=== PATIENT | male | born 1990 | race Caucasian/White ===

== ENCOUNTER 2016-12-27 01:34 | Observation (INO) | payer OTHER ==
[~2016-12-27] VITALS: Ht 182.9 cm; Wt 102.1 kg
[~2016-12-27 01:34] MED LIST: AMITRIPTYLINE H25 MG PO; BENTYL10 MG PO; CALCIUM 600 +1 EAC3 PO; DELZICOL400 M1 PO; DOXYCYCLINE MO100 MG PO; EFFEXOR XR150 MG PO; HYDROCODON-ACE1 EA10 PO; HYDROMORPHONE HC4 MG PO; LACTULOSE10 GM/15 M PO; MAPAP325 MG PO; MELADOX3 MG PO; MOTRIN IB200 MG PO; NEOSPORIN28 GM TOP; OXYCODONE HCL10 MG PO; STRATTERA80 MG PO
[2016-12-27] MEDS ORDERED: MIRALAX17 GM PO (01:51)
--- NOTE | 2016-12-27 05:20 | NUR ---
PT ARRIVED VIA [facility]RET[facility] FROM [facility] WITH x2 [facility] OFFICERS AT BEDSIDE. PT AMBULATES INDEPENDENTLY, STEADY ON FEET. UP TO BATHROOM, ORAL AND AM CARE DONE. PT NPO. IV FLUIDS INITIATED PER MD ORDERS. SCD'S IN PLACE. ADMISSION ASSESSMENTS COMPLETE. PT ALERT AND ORIENTED. PT RATES ABD PAIN 7-8/10, STATES THIS IS A TOLERABLE LEVEL AND DENIES NEEDING PAIN MEDICATION. PT DENIES ANY N/V AT THIS TIME. EDUCATED ACID DUMPER LIGHT, WITHIN REACH. PT AND OFFICERS DENY ANY FURTHER NEEDS AT THIS TIME.
--- NOTE | 2016-12-27 07:47 | NUR ---
RECIEVED BEDSIDE REPORT FROM KIRILL ALBERTS. PT AWAKE AND ALERT IN ROOM, CORRECTIONAL OFFICERS AT BEDSIDE. PT REPORTED NAUSEA AND PAIN. PRN MS AND ZOFRAN GIVEN.
--- NOTE | 2016-12-27 10:05 | NUR ---
PT UP IN ROOM. STATES PAIN IS 9/10, PRN MORPHINE GIVEN. PT ASKED ABOUT DRINKING AND CLEAR LIQUIDS. ADVISED AT THIS TIME, ORDERS ARE NPO. PT VERBALIZED UNDERSTANDING.
[2016-12-27] MEDS ORDERED: LEXAPRO10 MG PO (14:44)
[2016-12-27] MEDS ORDERED: HYDROXYZINE HCL50 MG PO (14:45)
[2016-12-27] MEDS ORDERED: SALINE NASAL SP30 ML NAS (14:46)
[2016-12-27] MEDS ORDERED: WHITE PETROLATUM5 GM TOP (14:47)
--- NOTE | 2016-12-27 14:58 | NUR ---
MED REC COMPLETE
--- NOTE | 2016-12-27 16:12 | NUR ---
Nurse gave ok to give ice chips.
--- NOTE | 2016-12-27 18:12 | NUR ---
CALLED DR PIMENTEL RE: PT SPITTING UP SMALL AMOUNT OF BLOODY MUCOUS. PT REPORTS INCREASED NAUSEA. DR PIMENTEL ADVISED TO GIVE AN ADDITIONAL 4MG DOSE OF ZOFRAN. DR PIMENTEL ADVISED IF PT BEGINS TO VOMIT, HE WILL NEED AN NG TUBE.
--- NOTE | 2016-12-27 18:56 | NUR ---
CALLED DR. PIMENTEL REGARDING PT WANTING TO REFUSE CARES AND RETURN TO [facility]. DR PIMENTEL ADVISED THAT HE CAN'T REFUSE CARE AND LEAVE AMA, HE NEEDS CARE THAT IS NOT AVAILABLE AT [facility]. ANIMAL [facility]UNTER IS AWARE AND WILL SPEAK WITH PT AND OFFICERS.
--- NOTE | 2016-12-27 19:20 | NUR ---
SPOKE WITH DR PIMENTEL, TELEPHONE ORDER TO RESTART [facility]. SPOKE WITH MARIA DOLORES JAUREGUI, RN AT [facility] OFFERED TO SPEAK WITH PT AND CONVINCE HIM TO COOPERATE WITH CARES. JUVENTINO REPORTED VERBAL LIST OF PSYCH MEDS THAT PT TAKES AT [facility]. ORDERS ENTERED FOR THOSE MEDS. EMPLOYEE RELATIONS DIRECTOR AWARE. [facility] AWARE.
--- NOTE | 2016-12-27 19:48 | NUR ---
RECEIVED REPORT FROM DAY SHIFT RN. PATIENT IS SITTING ON THE EDGE OF THE BED. PATIENT EXPRESSES CONCERN OF ANXIOUSNESS. DAY SHIFT RN. WAS ABLE TO CALL [facility]RI[facility] AND DR. PIMENTEL AND GET HIS HOME MEDS ADDED. LULÚ GIVE THEM WHEN AVAILABLE. CALL LIGHT IN REACH.
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
--- NOTE | 2016-12-27 21:21 | NUR ---
PATIENT IS REQUESTING MORE MEDICATION FOR ANXIETY. PATIENT STATES "I JUST CANT SETTLE DOWN TO SLEEP" PATIENT GIVEN PRN ANXIETY MEDICATION PER ORDER. PATIENT DENIES ANY FURTHER NEEDS AT THIS TIME. CALL LIGHT IN REACH.
--- NOTE | 2016-12-27 22:50 | NUR ---
PATIENT IS REQUESTING PAIN MEDICATION FOR 9/10 PAIN IN HIS ABD. PATIENT IS ALSO REQUESTING PRN NAUSEA MEDICATION. PATIENT GIVEN PRN NAUSEA AND PAIN MEDICATION PER ORDER. PATIENT DENIES ANY FURTHER NEEDS AT THIS TIME. CALL LIGHT IS WITHIN REACH.
--- NOTE | 2016-12-28 00:32 | NUR ---
PATIENT GIVEN PRN PAIN MEDICATION FOR 9/10 ABD PAIN. PATIENT DENIES ANY NAUSEA AT THIS TIME. PATIENT DENIES ANY FURTHER NEEDS CALL LIGHT IS WITHIN REACH.
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
--- NOTE | 2016-12-28 04:11 | NUR ---
PATIENT GIVEN PRN PAIN MEDICATION PER ORDER. PATIENT RATES PAIN AT A 9/10. PATIENT DENIES ANY FURTHER NEEDS AT THIS TIME. CALL LIGHT IS WITHIN REACH.
--- NOTE | 2016-12-28 05:46 | NUR ---
PATIENT AMBULATED X4 LAPS IN THE HALLWAY. PATIENT TOLERATED AMBULATION WELL. PATIENT RECEIVED A NEW IV. PATIENT TOLERATED ACTIVITY WELL. PATIENT RATES PAIN AT A 7/10 AND DENIES THE NEED FOR PAIN MEDICATION. PATIENT DENIES ANY NAUSEA AT THIS TIME.
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
--- NOTE | 2016-12-28 06:47 | NUR ---
PATIENTS MORNING MEDICATIONS GIVEN PER ORDER. PATIENT GIVEN PRN PAIN MEDICATION PER ORDER. PATIENTS IV INFILTRATED. PATIENT RECEIVED A NEW IV. PATIENT TOLERATED ACTIVITY WELL. PATIENT DENIES ANY FURTHER NEEDS. CALL LIGHT IS WITHIN REACH.
--- NOTE | 2016-12-28 07:24 | NUR ---
RECIEVED BEDSIDE REPORT FROM KIRILL EGAN. PT IN BED, AWAKE AND ALERT. OFFICERS X2 AT BEDSIDE. PT RESTLESS, UP AND DOWN ALL NIGHT.
--- NOTE | 2016-12-28 08:29 | NUR ---
PT VERY ANXIOUS. WOULD LIKE CAFFINE, BUT STATES HE HASN'T SLEPT IN 2 DAYS. PT IS UP AND DOWN AT ALL TIMES. PT C/O ITCHINESS. NO REDNESS, RASH, OR HIVES NOTED. PT WOULD LIKE TO SHOWER, WILL SET UP WITH OFFICER ASSISTANCE. KITCHEN ADVISED TO NOT GIVE PT CAFFINE.
--- NOTE | 2016-12-28 08:52 | NUR ---
PATIENT IS SITTING ON THE SIDE OF THE BED. PATIENT IS SET UP TO TAKE A SHOWER AFTER THE NURSE COMES TO SALINE LOCK HIM.
--- NOTE | 2016-12-28 09:19 | NUR ---
PT AGITATED AND ANXIOUS WHEN RN ENTERED ROOM. PREPARING PT FOR SHOWER. PT GIVEN MORPHINE IV AFTER TAKING DRESSING OFF IV AND REDRESSING THE CATHETER WAS KINKED UNDER DRESSING. IV COVERED AND SALINE LOCKED TO ALLOW PT TO SHOWER. WHILE CHANGING DRESSING ON IV, PT WAS COOPERATIVE, HELPFUL, AND DID NOT APPEAR TO BE ANXIOUS.
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
--- NOTE | 2016-12-28 16:54 | NUR ---
NO BM YET. WILL DO ENEMA NEXT TO PRODUCE BM. PT IS GETTING ANXIOUS, PRN ANXIETY MEDS GIVEN. PT REPORTS 9-10/10 PAIN Q 30 MIN, NO SIGNS OF PAIN NOTED. PT APPEARS TO BE AT BASELINE.
--- NOTE | 2016-12-28 17:38 | NUR ---
PT IS VERY ANXIOUS. PT REPORTS PAIN 9-10/10 Q 30-45 MINUTES. PT IS RESTLESS, PACES AROUND ROOM, FIDGITY. PRN PAIN MEDS X 7 THIS SHIFT. NO BM AFTER SUPOSITORY. FLEET ENEMA GIVEN, NO RESULTS AT THIS TIME. PT WOULD LIKE A SHOWER AFTER ENEMA. LEFT [facility] [place] FOR MD TO CALL BACK RE: PAIN CONTROL AND LACK OF RESULTS FROM ENEMA. PRN ANIXETY MEDS X2 THIS SHIFT.
--- NOTE | 2016-12-28 18:03 | NUR ---
PT REPORTS NO RESULTS FROM ENEMA. PHONE CALL IN TO DR PIMENTEL.
--- NOTE | 2016-12-28 18:13 | NUR ---
SPOKE WITH AMY, RN AT [facility]. THE LT IS ENROUTE TO THE HOSPITAL TO DETERMINE IF PT IS A RISK AND WILL RETURN TO THE FACILITY. DISCUSSED PLAN OF CARE AND CARE AVAILABLE. LT ARRIVED AT BEDSIDE.
--- NOTE | 2016-12-28 19:34 | NUR ---
RECEIVED REPORT FROM DAY SHIFT RN. PATIENT IS REQUESTING TO TAKE A SHOWER. PATIENTS GIVEN ESSENTIALS TO SHOWER. PATIENT DENIES ANY FURTHER NEEDS AT THIS TIME. X2 GUARDS IN THE ROOM.
--- NOTE | 2016-12-28 19:45 | NUR ---
PATIENT HAD INCREASED ANXIOUSNESS. DISCUSSED PLAN OF CARE WITH PATIENT. PATIENTS QUESTIONS ANSWERED. PATIENT AGREES TO PLAN OF CARE. PATIENTS ANXIETY APPEARS TO HAVE DECREASED AFTER DISCUSSION OF CARE. PATIENT DENIES ANY NEEDS AT THIS TIME CALL LIGHT IS WITHIN REACH.
--- NOTE | 2016-12-28 20:15 | NUR ---
SPOKE WITH DR. PIMENTEL ABOUT PATIENTS PAIN MANAGEMENT PLAN. LOREN TOMAS GAVE X2 NEW VERBAL ORDERS. VERIFIED NEW ORDERS USING THE READBACK METHOD. WILL PUT NE ORDERS INTO PLACE.
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
--- NOTE | 2016-12-28 23:22 | NUR ---
PATIENT GIVEN PO PRN PAIN MEDICATION PER ORDER. PATIENT RATES PAIN AT A 9/10 AND DESCRIBES THE PAIN CONSTANT PRESSURE. PATIENT DENIES ANY FURTHER NEEDS A THIS TIME. CALL LIGHT WITHIN REACH.
--- NOTE | 2016-12-29 01:20 | NUR ---
PATIENT IS RESTING IN BED WATCHING TV. PATIENT DENIES ANY NAUSEA. PATIENT RATES PAIN AT A 7/10. PATIENT DENIES THE NEED FOR ANY PAIN MEDICATION AT THIS TIME.
--- NOTE | 2016-12-29 03:25 | NUR ---
PATIENT IS RESTING IN BED WITH EYES CLOSED. BREATHING IS EVEN AND UNLABORED. RR 17. CALL LIGHT IN REACH.
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
--- NOTE | 2016-12-29 06:33 | NUR ---
PATIENT DENIES ANY NAUSEA. PATIENT RATES PAIN AT AN 8/10. PATIENT GIVEN PRN PAIN MEDICATION PER ORDER. PATIENT DENIES ANY FURTHER NEEDS AT THIS TIME. CALL LIGHT IS WITHIN REACH.
--- NOTE | 2016-12-29 07:05 | NUR ---
REPORT RECEIVED FROM SHOE CASER RN USING 5 P'S. PT AWAKE AND ALERT IN BED. DENIES NEEDS AT THIS TIME. IVF INFUSING WITHOUT DIFFICULTY. CALL LIGHT IN REACH. CO'S AT BEDSIDE.
--- NOTE | 2016-12-29 08:10 | NUR ---
PT REPORTS VOMITING, COMPLAINS OF NAUSEA. ZOFRAN GIVEN. SMALL AMOUNT PINK TINGED SPUTUM NOTED IN TOILET. PT GIVEN TORADOL FOR PAIN, WITH SCHEDULED AM MEDS.
--- NOTE | 2016-12-29 09:30 | NUR ---
PT RATES PAIN 9/10. PT NOT GRIMACING OR GUARDING ABDOMEN. TALKS EASILY WITH STAFF AND GUARDS. RN ASKS PT, "IT 10/10 MEANS YOU FEEL LIKE IT'S THE WORST POSSIBLE PAIN, IS YOUR PAIN A 9/10?" PT STATES, "WELL NO. IT'S PROBABLY LIKE A 7, BUT I DON'T WANT TO CHANGE MY ANSWER BECAUSE THEN YOU'LL THINK MY PAIN ISN'T BAD." RN EXPLAINS THAT THERE IS NOT A SPECIFIC NUMBER THAT QUALIFIES FOR PAIN MEDICATION, AND ASKS PT TO PLEASE RATE ACCURATELY POSSIBLE. PT SAYS, "WHATEVER."
--- NOTE | 2016-12-29 10:05 | NUR ---
RN TO ROOM FOR PERCOCET PT REQUESTED IT WHEN IT WAS DUE. PT SLEEPING. NO S/S DISTRESS. NOT WAKENED AT THIS TIME.
--- NOTE | 2016-12-29 10:19 | NUR ---
PT REQUESTS PAIN MED FROM NATIONAL INSURANCE OFFICER. NATIONAL INSURANCE OFFICER INFORMS RN. PT UP TO BR. RN RETURNS TO ROOM. PT SLEEPING IN BED. CONTINUING TO HOLD PAIN MED WHILE PT SLEEPING.
--- NOTE | 2016-12-29 11:52 | NUR ---
PT UP TO BR. REQUESTS PAIN MED. GIVEN. REMINDED PT OF NEED TO AMBULATE HALLS. TO STIMULATE BOWEL. PT AGREES TO AMBULATE. DENIES FURTHER NEEDS. CALL LIGHT IN REACH.
--- NOTE | 2016-12-29 12:47 | NUR ---
PT UP TO AMBULATE SCHROEDER. RATES PAIN 7/10. STEADY ON FEET.
--- NOTE | 2016-12-29 14:00 | NUR ---
PT TO CT WITH KEANU MOON.
--- NOTE | 2016-12-29 14:30 | NUR ---
PT BACK TO FLOOR. COMPLAINS OF NAUSEA. GIVEN ZOFRAN 4 MG IV. PT REQUESTS 2 APPLE JUICE, 2 CRANBERRY JUICE, AND A SODA. TALKED WITH PT REGARDING NEED TO ALLOW STOMACH TO REST IF ALREADY NAUSEATED. PT CONTINUES TO ASK FOR JUICE. GIVEN CRANBERRY JUICE. STATES UNDERSTANDS THAT MAY THROW UP, STATES, "I DON'T CARE. I'M JUST FUCKING THIRSTY." PT UNRECEPTIVE TO ATTEMPTS FOR RN TO EDUCATE.
--- NOTE | 2016-12-29 17:08 | NUR ---
PT SLEEPING IN BED. 2 CO'S AT BEDSIDE. IV FLUIDS INFUSING WITHOUT DIFFICULTY. CALL LIGHT IN REACH.
--- NOTE | 2016-12-29 17:29 | NUR ---
PT CONTINUES TO RATE PAIN 7-10. RECEIVING PERCOCET AND TORADOL. FALLS ASLEEP FREQUENTLY BETWEEN MEDICATIONS. AMBULATED SCHROEDER X 1 THIS SHIFT. PT COMPLAINS OF NAUSEA THROUGHOUT SHIFT. MEDICATED WITH ZOFRAN. TALKED WITH PT REGARDING NEED TO TAKE FLUIDS SLOW IF NAUSEOUS. PT REFUSES EDUCATION. CT THIS AFTERNOON. NO BLOCKAGE NOTED. NEEDS TO HAVE BM. NO RESULTS YET. 2 CO'S AT BEDSIDE. CALLS APPROPRIATELY. INDEPENDANT IN ROOM.
--- NOTE | 2016-12-29 18:16 | NUR ---
PT UP AMBULATING HALLS. LAUGHING AND TALKING WITH CO'S. RATES PAIN /. STEADY ON FEET.
--- NOTE | 2016-12-29 18:57 | NUR ---
PT SL'D FOR SHOWER. SL COVERED.
--- NOTE | 2016-12-29 20:05 | NUR ---
pt laying in bed, watching tv. marcinds x2 at bedside. pt complained of 9/10 pain in his adb, gave percocet x2. gave pt new toothbrush per request. gave cranberry juice and lemon kipnuk soda per request. pt had unhooked himself from his iv tubing, nurse educated pt and his guards on the importanence of recieving fluids at this time, and the need for him to have nurse unhook him if needed. pt agreed to call. call light in reach. no further needs at this time.
--- NOTE | 2016-12-29 20:11 | NUR ---
pt up in halls ambulating, no apparent distress, very steady on feet. guards x2 walking with him.
--- NOTE | 2016-12-30 00:21 | NUR ---
PT CALLED, REQUEST PAIN MEDICATION. MEDICATION GIVEN. PRUNE JUICE GIVEN. PT UP TO BATHROOM INDEPENDENTLY. GUARDS IN ROOM. NO FURTHER NEEDS AT THIS TIME. CALL LIGHT WITHIN REACH.
--- NOTE | 2016-12-30 02:45 | NUR ---
IN TO CHECK ON PT, PT IN BED SLEEPING. IVF INFUSING. GUARDS AT BEDSIDE. CALL LIGHT WITHIN REACH.
--- NOTE | 2016-12-30 06:15 | NUR ---
IN TO SEE PT, PT COMPLAINS OF 8/10 PAIN. PERCOCET GIVEN. 2 CO'S AT BEDSIDE. NO FURTHER NEEDS AT THIS TIME. CALL LIGHT WITHIN REACH.
--- NOTE | 2016-12-30 06:26 | NUR ---
PT HAS HAD UNEVENTFUL SHIFT, RESTED WELL. RATES PAIN A 7-8/10. PERCOCET GIVEN. AMBULATE THE HALLWAY SEVERAL TIMES. NO C/O NAUSEA. DIET ADVANCED TO FULL LIQUID, TOLERATING WELL. PRUNE JUICE GIVEN. NO BM. 2 CO'S AT BEDSIDE. INDPENDANT IN ROOM. CALLS APPROPRIATELY.
--- NOTE | 2016-12-30 07:43 | NUR ---
PT USED CALL LIGHT TO REQUEST BREAKFAST ITEMS
--- NOTE | 2016-12-30 08:02 | NUR ---
-PT SITTING UP AT BEDSIDE. EATING LARGE FULL LIQUID TRAY. NO REPORT OF PAIN AT THIS TIME. DRANK PRUNE JUICE, RN DISCUSSED WALKING 4 TIMES TODAY OUT IN HALLS AT A MINIMUM TODAY.
--- NOTE | 2016-12-30 08:26 | NUR ---
PT UP AMBULATING IN HALLS AT THIS TIME
--- NOTE | 2016-12-30 09:49 | NUR ---
PATIENT SITTING UP ON COUCH EATING BREAKFAST. TALKED ABOUT A SHOWER AFTERWARDS. NO OTHER NEEDS AT THIS TIME.
--- NOTE | 2016-12-30 11:16 | NUR ---
PT UP AMBULATING IN HALLS, NOW S/L FOR SHOWER. REPORTS PAIN 01/09, ADMINSTERED TWO TABS PERCOCET
--- NOTE | 2016-12-30 12:12 | NUR ---
PT CALLED [facility] TO REQUEST NURSE. PT IN BATHROOM SITTING AT TOILET REPORTS HE HAS BEEN VOMITING ALTHOUGH ONLY SPUTUM WITH SMALL AMOUNT OF RED STREAK IN APPEARS TO HAVE HAD A MILD NOSE BLEED. PT REPORTS HE FEELS THOUGH LUNCH IS SITTING HIGH GASTRIC REGION CAUSING PRESSURE. BOWELS AT THIS TIME ARE ACTIVE. PT GIVEN EMESIS BAG AND INSTRUCTED THAT AMBULATING IS GOING TO BE THE BEST THIS FOR HIM TO HELP INCREASE BOWEL ACTIVITY AND GET FOOD MOVING. PT OTLERATING ACTIVITY WELL.
--- NOTE | 2016-12-30 12:32 | NUR ---
PT STILL AMBUALTING HALLS REPORTS HE IS FEELING A LITTLE BETTER NOW.
--- NOTE | 2016-12-30 13:06 | NUR ---
PT REQUEST RN TO CALL HIS PAIN HAS INCREASED HIS LUNCH AND HIS PAIN MEDICATION IS NOT EFFECTIVE. CALLED TO UPDATE THAT PT HAS HAD TWO BREAKFASTS AND A LARGE LUNCH AFTER RN GAVE EDUCATION TO PT TO NOT EAT LARGE QUATITES AND TO GO SLOW. PT HAD CHEESE BURGER FOR LUNCH. [facility] AND CONTINUE CURRENT PAIN REGIMEN
--- NOTE | 2016-12-30 13:18 | NUR ---
PT SITTING ON SIDE OF BED, WITH CO'S ON EACH SIDE. PT POLITE AND COURTEOUS. SAID PAIN IS CONSTANT, AND DIDN'T GIVE A #. PT STATED HE HAS HAD TO DEAL WITH CHRON'S DISEASE FROM CHILDHOOD. THANKED ME FOR COMING, WILL CONTINUE TO CHECK AND FOLLOW
--- NOTE | 2016-12-30 14:20 | NUR ---
PT RESTING IN BED EYES CLOSED RR EVEN 16BPM NO DISTRESS NOTED
--- NOTE | 2016-12-30 15:03 | NUR ---
PT UP AMBULATING IN HALLS NO DISTRESS NOTED. PT REPORTS LARGE AMOUNT OF FLATUS REGULARLY
--- NOTE | 2016-12-30 17:30 | NUR ---
PT UP AMBUALTING IN HALLS LAUGHING AND JOKING WITH GUARDS. PT TOLERATING ACTIVITY WELL. PT GAVE ORDER FOR DINNER INCUDING STEAK, PEANUT BUTTER AND JELLY SANDWICH, ICE CREAM, COOKIES, PUDDING, TWO SODAS. PT EDUCATION PROVIDED PT ORDER CHANGED TO GRILLED CHEESE, AND ICE CREAM.
--- NOTE | 2016-12-30 18:26 | NUR ---
PT HAS BEEN TOLERATING LOW FIBER DIET WELL NO EMESIS, HE DOES TRY TO ORDER LARGE QUANTITIES FOR EACH MEAL THIS REQUIRES MONITORING. HE HAD INCREASE PAIN AFTER LUNCH LARGE MEAL. HE HAS BEEN AMBULATING IN HALLS REGULARLY 5+ TIMES TODAY. HE REPORTS REGULAR FLATUS, NO BM THUS FAR. NO EMESIS. REQUESTS PAIN COVERAGE EVERY FOUR HOURS HE CAN HAVE EVERY FOUR HOURS REPORTING HIS PAIN 8/10. VITALS STABLE.
--- NOTE | 2016-12-30 19:42 | NUR ---
IN TO SEE PT, PT REQUEST MEDICATION FOR 8/10 ABD PAIN. MAXIMUM DOSE LIMIT DISCUSSED. PT ASKS IT IS "OKAY TO TAKE PERCOCET 1 PO AT 2000, 1 PO AT 0015 AND NOTHING UNTIL MORNING". PLAN TO FOLLOW PT'S REQUEST. PT REQUEST NIGHT TIME MEDICATION AT 2200 DUE TO DROWSENESS. ASSESSMENT COMPLETE. 2 CO'S AT BEDSIDE. CALL LIGHT WITHIN REACH.
--- NOTE | 2016-12-30 22:00 | NUR ---
IN TO CHECK ON PT, VITALS TAKEN AND PM MEDS GIVEN. PT REQUEST CEREAL. ADVISE THAT CEREAL IS NOT ON THE LOW FIBER DIET. REQUEST ICE CREAM. ICE CREAM GIVEN. IVF CHANGED, IV PUMP STOPPED AND OFF WHEN ENTERING THE ROOM. PT ADVISED NOT TO STOP OR TURN OFF IVF, CALL RN. 2 CO AT BEDSIDE. CALL LIGHT WITHIN REACH.
--- NOTE | 2016-12-31 01:16 | NUR ---
IN TO CHECK ON PT, PT APPEARS TO BE SLEEPING. 2 CO'S AT BEDSIDE. CALL LIGHT WITHIN REACH.
--- NOTE | 2016-12-31 04:22 | NUR ---
PT CALL TO REQUEST PRN PAIN MEDICATIN. WHEN ENTERING ROOM PT UP TO BATHROOM TO URINATE, NO APPARENT DISTRESS NOTED. PT AMBULATED WITHOUT ASSISTANCE FROM GUARD. PAIN MEDICATION GIVEN. 2 CO'S AT BEDSIDE. CALL LIGHT WITHIN REACH.
--- NOTE | 2016-12-31 04:35 | NUR ---
PT HAS HAD UNEVENTFUL SHIFT, SLEPT WELL. PT HAS TOLERATED LOW FIBER DIET, NO NAUSEA OR EMESIS. ATTEMPTS TO ORDER LARGE QUANTITIES AT MEALS, RN SHOULD MONITOR. PT REPORT NO BM ON SHIFT, POSITIVE FLATUS. PT CONSISTANTLY RATES PAIN AN 8-9/10. PRN MEDIACTION GIVEN. VITALS STABLE. 2 CO'S AT BEDSIDE.
--- NOTE | 2016-12-31 06:15 | NUR ---
PT UP TO AMBULATE IN THE HALLWAY INDEPENDENTLY. NO APPARENT DISTRESS NOTED. 2 CO'S AT SIDE.
[2016-12-31] MEDS ORDERED: OXYCODON-ACETA1 EAC2 PO (08:49)
[2016-12-31] MEDS ORDERED: PANTOPRAZOLE SO40 MG PO (08:50)
[2016-12-31] MEDS ORDERED: PREDNISONE20 MG PO (08:54)
--- NOTE | 2016-12-31 10:04 | NUR ---
REPORT CALLED TO [facility]. PT DISCHARGE EDUCATION GIVEN ON DISEASE PROCESS AND CONTINUED THERAPY LOW FIBER DIET, PAIN MANAGEMENT AND EATING SMALL MEALS. AMBULATION AND WATER INTAKE IS VERY IMPORTANT. MEDICAITON EDUCATION BY RN AND PHARMACY DIDI. PT REPORTS NO FURTHER QUESTIONS AND VERBALIZED EDUCATIONS GIVEN
--- NOTE | 2016-12-31 11:53 | NUR ---
Didn't take shower do to discharge.
--- NOTE | 2017-01-04 10:32 | HP ---
[facility] [address], [place] [address] Signed ADMIT DATE: 12/27/2016 REASON FOR ADMISSION: Bowel obstruction, probably Crohn's related. HISTORY: This 26-year-old white man is a prisoner at [facility] and well known to me from the past. 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 Biopsy of his rectum at that time showed no sign of active Crohn's disease. He is well established to have Crohn's disease in the past having seen Dr. Mitchell, a nurse assistant in the [facility]. He was initiated on Remicade for which he had an anaphylactic reaction and subsequently Humira with similar effect. He has never had an intraabdominal operation for his Crohn's disease. He has been feeling somewhat poorly lately with vague abdominal pain and this sanabria s been known to me from the past. Indeed a plan for colonoscopy was made in the near future to assess his disease activity. His last colonoscopy was in the [facility] over a year ago. Yesterday he began having significant abdominal pain and audible bowel sounds in the lower abdomen and some pain in the right lower abdomen. He had upper abdominal pain previously. He had vomiting twice prior to arrival to the emergency room. He was seen by Dr. Perez approximately 2 in the morning. Laxatives have been tried with only small bowel movements. He had no blood per rectum. He has had no fever or chills. PAST MEDICAL HISTORY: Included left hand cellulitis in the past, also suicide attempt a few months ago by hanging, which was unsuccessful. MEDICATIONS: Currently include calcium and vitamin D3 supplement, Delzicol 400 mg p.o. t.i.d., lactulose 10 mg daily, melatonin 3 mg daily, episodic use of oxycodone for abdominal pain, Strattera 40 mg p.o. daily, and MiraLAX as needed for constipation. REVIEW OF SYSTEMS: He denies any chest pain. He has had no hematemesis. He denies blood per rectum. Currently, his pain is less than at time of admission. PHYSICAL EXAMINATION: GENERAL: Tall white man, who looks to be healthy overall. NECK: Normal. Trachea is midline. CHEST: Clear. HEART: Regular, without murmur. Electronically Signed By: ROBBIN PIMENTEL MD 01/04/17 1032 PATIENT NAME: ADRIENNE CANALES HISTORY AND PHYSICAL DATE OF : [birth year] PHYSICIAN: ROBBIN PIMENTEL MD REPORT #: [id number] REPORT IS CONFIDENTIAL AND NOT TO BE RELEASED WITHOUT AUTHORIZATION [facility] [address], [place] [address] Signed ABDOMEN: Nondistended, slightly obese, soft, easily palpated. There is no focal mass detected. No tenderness at the moment. EXTREMITIES: No clubbing, cyanosis, or edema. LABORATORY DATA: Show admission white count of 6.3, hematocrit 46.8, platelets 261,000. Electrolytes are normal. Creatinine 0.71, calcium 10.2. I have reviewed the CT scan in detail with Dr. Ortez. There is a segment of the sigmoid that has a concentric ring like scar. It appears there is some proximal dilation of the colon and fluid filled right colon and stool in the left colon. Small bowel loops appear to be jumbled into a confluence in the right lower abdomen, although t he terminal ilium proper appears to be reasonably free. ASSESSMENT: Most likely has a Crohn's related intraabdominal problem of either internal fistulization with obstructive type change or perhaps obstruction alone. It is unclear the cause of colonic dilation, the sigmoid lesion may be contributing to an obstructive process. Given his underlying issue of Crohn's disease, I have initiated steroid therapy as a "rescue drug" at this time. This may allow this problem to settle naturally without the need for operative intervention. It warrants a chance at therapy. Although, operative intervention may come to pass if it can be avoided that would be preferable obviously so as to avoid need for bowel resection and for complications, which might include fistulization or poor wound healing internally. Ulcer prophylaxis will be maintained in the meantime. We will review this with Dr. Amaro, physician at the [facility]. MD ROMERO Cooper/Modl /[id number] cc: Grady Amaro MD Electronically Signed By: ROBBIN PIMENTEL MD 01/04/17 1032 PATIENT NAME: ADRIENNE CANALES HISTORY AND PHYSICAL DATE OF : [birth year] PHYSICIAN: ROBBIN PIMENTEL MD REPORT #: [id number] REPORT IS CONFIDENTIAL AND NOT TO BE RELEASED WITHOUT AUTHORIZATION
--- NOTE | 2017-01-05 13:32 | DS ---
[facility] [address], [place] [address] Signed ADMIT DATE: 12/27/2016 DISCHARGE DATE: 12/31/2016 REASON FOR ADMISSION This 26-year-old white man is a prisoner at the [facility] and well known to me from the past. 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 Biopsy of his rectum at that time showed no sign of active Crohn's disease. So he is well established to have Crohn disease in the past. He had seen a options trader in the [facility], Dr. Mitchell and was initiated on Remicade for control of his symptoms, which he had an anaphylactic reaction to. He subsequently was given Humira, which had a similar anaphylactic effect. He has never had intraabdominal operation for his Crohn disease. He had been feeling poorly lately with vague abdominal pain, which was described in the past. A plan for colonoscopy had been made in later in this month to assess disease activity. He has his last colonoscopy was in the [facility] over a year ago. The day prior to current admission, he began having significant abdominal pain and audible bowel sounds in the lower abdomen. He had some pain in the right lower abdomen. He vomited twice prior to his arrival to the emergency room, was evaluated by Dr. Perez in approximately 2 in the morning. Laxatives had been tried with only small bowel movements. He has had no blood per rectum. His evaluation included lab studies, as well as a CT scan of the abdomen showed a segment of sigmoid that had been tethered in an inflammatory process in the right lower abdomen and karla rowing and obstructive findings in a complicated tangle of bowel loops in the right lower abdomen. He is admitted for further evaluation and care for high probability of bowel obstruction related to Crohn's disease. PERTINENT PHYSICAL EXAM: GENERAL: Showed a large white man who did not look systemically toxic particularly. CHEST: Clear. HEART: Regular without murmur. ABDOMEN: Nondistended slightly obese, soft easily, palpated. There is no focal mass or tenderness. No sign of ascites. EXTREMITIES: Showed no sign of edema. LABORATORY DATA: Electronically Signed By: ROBBIN PIMENTEL MD 01/05/17 1332 PATIENT NAME: ADRIENNE CANALES DISCHARGE SUMMARY DATE OF : [birth year] PHYSICIAN: ROBBIN PIMENTEL MD REPORT #: [id number] REPORT IS CONFIDENTIAL AND NOT TO BE RELEASED WITHOUT AUTHORIZATION [facility] [address], [place] [address] Signed White count was 6.3, hematocrit 46.8, platelets 261,000, electrolytes normal, creatinine 0.71, calcium 10.2. The CT scan was reviewed in great detail with Dr. Ortez and there appeared to be a dense inflammatory obstructive process in the right lower abdomen with secondary tethering of the sigmoid colon. A fair amount of fluid was noted in the colon itself, as well as stool, as well as dilation of small bowel loops. HOSPITAL COURSE: A nasogastric tube was not placed for enteric decompression as he was resistent to the idea.He was not vomitingeither however. He was begun on hydrocortisone 100 mg IV q.8 hours on the high probability, this represented an inflammatory process related to his Crohn disease. The patient did have improvement of his symptoms of abdominal pain and distention. A nasogastric tube was not placed, though it certainly was considered. The patient on the 1st day of hospitalization intimated he wished to leave the hospital "AMA" as he did not like to be restrained in chains in the hospital setting, which of course is standard and appropriate for convicted felons in this institution. Followup lab studies showed normal electrolytes, including liver enzymes and CBC. DVT prophylaxis was maintained as well.Underlying anxiety disorder contributed to his ambivalence about hospitalization. Followup plain x-rays were undertaken showing decrease of enteric distention. He was s begun on Jell-O for comfort and was noted to have on the intital CT scan, a fair amount of obstruction of the colon related to tethering of the sigmoid, but without enteric or luminal neoplasm. Enemas were given without any significant benefit. By this time, he was improving somewhat and plain abdominal x-rays showing no sign of bowel obstruction. A repeat CT scan was obtained to assess progress of his nonoperative management of inflammatory adhesion related small bowel obstruction. Indeed this did show marked improvement of his abdominal distention and decrease of the edema and so forth related to the inflammatory process in the right lower abdomen. He had progressive improvement and was transitioned to oral steroid prednisone 40 mg p.o. daily with maintenance of the PPI medication for ulcer prophylaxis. His diet was advanced to a low fiber diet which he tolerated well. It appeared that he was improving enough with the anti-inflammatory regimen that he could be returned to the [facility] for further management. It is my intention at some point to do a small-bowel follow-through x-ray to assess extent of stricturing or inflammatory change in the small bowel, which has caused this obstructive process. He has not had abdominal surgery to resect or otherwise revise any stricture and at present it does not advocated unless recurrent symptoms should occur. Electronically Signed By: ROBBIN PIMENTEL MD 01/05/17 1332 PATIENT NAME: ADRIENNE CANALES DISCHARGE SUMMARY DATE OF : [birth year] PHYSICIAN: ROBBIN PIMENTEL MD REPORT #: [id number] REPORT IS CONFIDENTIAL AND NOT TO BE RELEASED WITHOUT AUTHORIZATION [facility] [address], [place] [address] Signed At some point, he may require segmental resection of the bowel with an inflammatory stricture if persistent and recurrent. At time of the discharge, he is ambulating well. Tolerating the solid diet (low-fiber) and tolerating his usual oral medications including psychotropic medications. DISCHARGE MEDICATION: Regimen will include prednisone 40 mg p.o. daily tapering 10 mg every 2 weeks down to every other day dosing eventually. Additionally, he is resuming his Delzicol, which he has been taking all along. Continue antiulcer prophylaxis will be recommended including Protonix 40 mg p.o. daily. His psychotropic medications will be continued as well. FOLLOWUP PLAN: He will return to see me when I next perform a retirement clinic within the next few weeks. He should maintain a low-fiber diet until the time that he is seen back. It will be up to the judgment of Dr. Amaro as to when he is able to return to the population at the retirement as he may still require some monitoring and modification of his diet to be low residue for the time being. DISCHARGE DIAGNOSES: Small bowel obstruction and impairment of colonic emptying related to inflammatory process of right lower abdomen, probably Crohn's disease. Marked improvement and resolution of small-bowel obstruction and colonic distention with oral steroid therapy. Well-established Crohn's disease. Psychiatric diagnosis including anxiety and depression. History of perianal fistula. Now with a yellow vessel loop seton for chronic drainage. Incarceration, [facility]. MD ROMERO Cooper/Jarred /[id number] cc: Electronically Signed By: ROBBIN PIMENTEL MD 01/05/17 1332 PATIENT NAME: ADRIENNE CANALES DISCHARGE SUMMARY DATE OF : [birth year] PHYSICIAN: ROBBIN PIMENTEL MD REPORT #: [id number] REPORT IS CONFIDENTIAL AND NOT TO BE RELEASED WITHOUT AUTHORIZATION [address] [facility] S[facility] By: ROBBIN PIMENTEL MD 01/05/17 1332 PATIENT NAME: ADRIENNE CANALES DISCHARGE SUMMARY DATE OF : [birth year] PHYSICIAN: ROBIBN PIMENTEL MD REPORT #: [id number] REPORT IS CONFIDENTIAL AND NOT TO BE RELEASED WITHOUT AUTHORIZATION
[2017-01-18] MEDS ORDERED: ULTRAM50 MG PO (16:35)
== END 2016-12-31 10:30 | disposition home or self-care (01) ==
LOC: ED 01:34 → MS 01:36 → ED 04:45 → MS 04:45
PROVIDERS: ADMIT Surgery
DX: K50.912 Crohn's disease, unspecified, with intestinal obstruction (principal); Z79.891 Long term (current) use of opiate analgesic; Z79.899 Other long term (current) drug therapy; Z88.8 Allergy status to other drugs, medicaments and biological substances
CPT/HCPCS: 74000; 74177; 80053; 81001; 83690; 85025; 96361; 96372; 96374; 96375; 96376; 99285; G0378; J1170; J1200; J1644; J1720; J1885; J2270; J2405; J7030; J7120; J7512; Q9967

== ENCOUNTER 2017-01-03 19:22 | Inpatient (IN) | payer OTHER ==
[~2017-01-03] VITALS: Ht 182.9 cm; Wt 95.2 kg
[~2017-01-03 19:22] MED LIST changes: +HYDROXYZINE HCL50 MG PO; +LEXAPRO10 MG PO; +MIRALAX17 GM PO; +OXYCODON-ACETA1 EAC2 PO; +PANTOPRAZOLE SO40 MG PO; +PREDNISONE20 MG PO; +SALINE NASAL SP30 ML NAS; +WHITE PETROLATUM5 GM TOP
[2017-01-03] MEDS ORDERED: TRAMADOL HCL50 MG PO (19:37)
--- NOTE | 2017-01-04 00:15 | NUR ---
PT ARRIVED TO FLOOR ESCORTED BY RN PRODUCT MGMT DEV MANAGER AND 2 GUARDS, PT IS FROM [facility] AND HAS RESTRAINTS TO 4 EXTREMITIES INCLUDING BELLY CHAIN. ALERT/ORIENTED. REPORTS 9/10 ABDOMINAL PAIN. LUNGS CLEAR, RA. HR REGULAR. BOWEL TONES SLIGHTLY HYPOACTIVE, PT STATES HE IS ABLE TO PASS FLATUS, ABDOMEN IS TENDER AND MILDLY DISTENDED. IV PATENT, IVF STARTED. ARRIVED WITH OG TUBE IN PLACE, CONNECTED TO LOW REGULAR SUCTION. PT PULLED TUBE SHORTLY AFTER ARRIVING TO FLOOR, EVEN AFTER BEING EDUCATED TO THE PURPOSE OF TUBE. PT STEADY ON FEET. PT APPEARS ANXIOUS. ORIENTED TO ROOM, CALL LIGHT IS WITHIN REACH.
--- NOTE | 2017-01-04 01:04 | NUR ---
CALLED DR. PIMENTEL TO LET HIM KNOW THAT PT PULLED OG TUBE OUT SHORTLY AFTER ARRIVING TO FLOOR. DR. PIMENTEL STATES IT IS OK TO LEAVE TUBE OUT TONIGHT. DR. PIMENTEL ALSO WANTS PT'S HOME MEDS ORDERED: STRATTERA, LEXAPRO, HYDROXYZINE, AND MELATONIN.
--- NOTE | 2017-01-04 02:12 | NUR ---
CALLED AND SPOKE WITH DR. PIMENTEL ABOUT PT'S PAIN CONTROLL. PT STATES THAT PAIN IS ONLY RELIEVED FOR ABOUT 20 MINUTES. NEW ORDERS RECEIVED FOR MORPHINE 2-10MG IV Q30 MINUTES PRN FOR PAIN AND TORADOL 30MG IV Q8 HOURS PRN FOR PAIN.
--- NOTE | 2017-01-04 02:41 | NUR ---
PT REPORTING 9/10 ABDOMINAL PAIN. PRN TORADOL AND 4MG IV MORPHINE ADMINISTERED. PT GIVEN SWAB TO MOISTEN MOUTH WITH, DENIES FURTHER REQUESTS. WILL CONTINUE TO MONITOR.
--- NOTE | 2017-01-04 03:45 | NUR ---
PT CALLED TO REQUEST PAIN AND NAUSEA MEDICATION. ZOFRAN AND 4MG IV MORPHINE ADMINISTERED. PT DENIES FURTHER REQUESTS AT THIS TIME.
--- NOTE | 2017-01-04 04:00 | NUR ---
ASSESSMENT COMPLETED. NO CHANGES FROM PREVIOUS ASSESSMENT.
--- NOTE | 2017-01-04 05:12 | NUR ---
E.D. ADMIT. ALERT/ORIENTED. RATES ABDOMINAL PAIN 8-9/10, RECEIVED TORADOL ONCE AND 4MG IV MORPHINE ALMOST HOURLY. LUNGS CLEAR, RA. HR REGULAR. BOWEL TONES PRESENT, SLIGHTLY HYPOACTIVE, REPORTS (+) FLATUS, NAUSEATED ONCE, RECEIVED IV ZOFRAN. ABDOMEN IS TENDER, MILDLY DISTENDED. ANXIOUS, RECEIVED HIS PRN AND SCHEDULED ANXIETY MEDS WITH A SIP OF WATER, OTHERWISE HAS BEEN NPO. IV PATENT, LR @125 ML/HR. INDEPENDENT IN ROOM, STEADY ON FEET. FROM [facility], 2 GUARDS IN ROOM, RESTRAINTS X4 EXTREMITIES WITH BELLY CHAIN.
--- NOTE | 2017-01-04 07:50 | NUR ---
PT SITTING UP AT EDGE OF BED UPON ENTERING ROOM. SHACKLES TO ALL EXTREMITIES WITH BELLY CHAIN IN PLACE, TWO CORRECTIONAL OFFICERS AT BEDSIDE. PT ALERT AND ORIENTED. REPORTING 8/10 ABD PAIN, MEDICATED WITH IV MORPHINE. DENIES NAUSEA. POSITIVE BT AND PT REPORTS POSITIVE FLATUS. IV INFUSING IN RIGHT WRIST, PATENT.
--- NOTE | 2017-01-04 09:30 | NUR ---
DR. PIMENTEL PLACED NASOGASTRIC TUBE WITH LIDOCAINE GEL. PT DID NOT TOLERATE WELL. WAS PLACED SUCCESSFULLY BUT PT VERY ANXIOUS AFTERWARDS. PT ASKING IF HE CAN HAVE COFFEE AND JUICE. EDUCATED PT ON NPO DIET. PT STATES "I DON'T WANT THIS THING IN, I'M GONNA TAKE IT OUT. IT'S NOT EVEN WORKING." REEDUCATED PT ON WHY THE TUBE IS IN AND THAT IT IN FACT IS WORKING. CORRECTIONAL OFFICERS AT BEDSIDE ENCOURAGING PT LEAVE NGT IN PLACE. DR. PIMENTEL ORDERED IV ANTIANXIETY MEDICATIONS. PT REMAINED IN FOUR POINT CORRECTIONAL RESTRAINTS THROUGHOUT PROCEDURE.
--- NOTE | 2017-01-04 10:36 | NUR ---
PT WAS STANDING UP WHEN I ENTERED ROOM, ASKED HIM TO PLEASE STAY IN BED AND ASKED THE COREECTIONAL OFFICERS TO MAKE SURE HE DOES SO. PT BP VERY HIGH, NURSE NOTIFIED.
--- NOTE | 2017-01-04 13:12 | NUR ---
PT VERY ANXIOUS UPON ENTERING ROOM, STANDING AT BEDSIDE. EXTREMTIES RESTRAINED IN FOUR POINT SHACKLES. PT STATES "I CAN'T HAVE THIS TUBE IN MY NOSE ANYMORE. I'M CLUSTORPHOBIC AND ALL THESE TUBES AND SHACKLES ARE DRIVING ME NUTS. CALL DR. PIMENTEL AND TELL HIM TO GET THIS TUBE OUT." PT MEDICATED WITH IV DILAUDID AND ZOFRAN AT THIS TIME PER REQUEST. UNHOOKED FROM WALL SUCTION TO AMB HALLWAY. WHILE AMB PT DOES NOT APPEAR TO BE IN PAIN. CHATTING CALMLY WITH CORRECTIONAL OFFICERS MAKING MULTIPLE LAPS THROUGH SCHROEDER.
--- NOTE | 2017-01-04 15:00 | NUR ---
ORDER FOR HALDOL AND DILAUDID ADMITTANCE ATTENDANT ORDERED PER DR. PIMENTEL FOR PT PAIN AND AGITATION. STARTED AT THIS TIME. PT JODY WELL. CORRECTIONAL OFFICERS AT BEDSIDE.
--- NOTE | 2017-01-04 15:18 | NUR ---
PT IS ASLEEP, RESPERATIONS EVEN. VITALS TAKEN.
--- NOTE | 2017-01-04 16:23 | NUR ---
PT RESTING IN BED, EYES CLOSED, RESP EVEN AND UNLABORED.
--- NOTE | 2017-01-04 18:05 | NUR ---
PT RESTING IN BED, EYES CLOSED, RESP EVEN AND UNLABORED.
--- NOTE | 2017-01-04 18:42 | NUR ---
PT WAS SLEEPING WHEN I ENTERED ROOM BUT IS AWAKE NOW SITTING ON THE BEDSIDE DRINKING APPKE JUICE AND ICE WATER.
--- NOTE | 2017-01-04 19:15 | NUR ---
BEDSIDE REPORT RECEIVED FROM OFFGOING NURSE. PT LYING IN BED WITH EYES CLOSED, APPEARS TO BE SLEEPING. GAURDS REMAIN AT BEDSIDE. SHACKLES IN PLACE. CALL LIGHT WITHIN REACH.
--- NOTE | 2017-01-04 21:50 | NUR ---
PT RESTING IN BED WITH EYES CLOSED. APPEARS TO BE SLEEPING. WAKES TO NAME BEING CALLED AND GENTLE SHAKE. PT RATES PAIN 8/10 UPON WAKING, PRESSES CHOPPING MACHINE OPERATOR BUTTON. PT REPORTS PASSING GAS YESTERDAY, ANDERSON AT BEDSIDE REPORTS PT PASSED GAS WHILE SLEEPING. BT'S ACTIVE, ABD TENDER. PT ASKS "HOW LONG DO I HAVE TO KEEP THIS TUBE IN MY NOSE". CURRENT ILLNESS EXPLAINED TO PT, WELL PURPOSE OF TUBE. PT STATES UNDERSTANDING, AGREES TO LEAVE TUBE IN PLACE. PT DENIES NEEDS AT THIS TIME. CALL LIGHT WITHIN REACH.
--- NOTE | 2017-01-04 22:36 | NUR ---
PT UP WALKING HALLS X 2 LAPS WITH GAURDS PRESENT. PT REQUESTING BROTH AND JUICE. SMALL AMOUNTS OF EACH GIVEN. PT DENIES FURTHER NEEDS.
--- NOTE | 2017-01-05 00:45 | NUR ---
PT UP TO WALK IN THE SCHROEDER X 4 WITH ORQUIDEA. PT REQUESTS JUICE AND COFFEE ONCE BACK TO HIS ROOM. PT DENIES OTHER NEEDS. CALL LIGHT WITHIN REACH, ODELLDS REMAIN AT BEDSIDE.
--- NOTE | 2017-01-05 02:50 | NUR ---
SPT RESTING IN BED WITH EYES CLOSED. RESPIRATIONS ARE EVEN AND UNLABORED. PT APPEARS TO BE SLEEPING. CALL LIGHT WITHIN REACH. GAURDS PRESENT AT BEDSIDE.
--- NOTE | 2017-01-05 04:05 | NUR ---
SANDING SUPERVISOR REPORTS PT STATING HE IS HAVING PANIC ATTACK. UPON ASSESSMENT PT STANDING IN BATHROOM WRINGING HANDS TOGETHER AND FIDGETING WITH SHACKLES. PT STATES THAT HE FEELS ANXIOUS, AND THAT HE "WOKE UP THIS WAY." PT REPORTS THAT HE REMOVED HIS NG TUBE UPON WAKING. MD NOTIFIED, ORDER TO LEAVE TUBE OUT AND RESUME NPO STATUS RECEIVED. PT STATES UNDERSTANDING. DILAUDID PLUG OVERWRAP MACHINE TENDER SYRINGE EMPTY. PT EXPRESSES THAT HE WOULD LIKE TO GO OFF OF PLUG OVERWRAP MACHINE TENDER AND BACK TO RN ADMINISTERED MEDICATION BECAUSE THE PLUG OVERWRAP MACHINE TENDER "WON'T LET HIM HAVE THE MEDICATION OFTEN HE WOULD LIKE". TEACHING REGARDING PLUG OVERWRAP MACHINE TENDER, PLUG OVERWRAP MACHINE TENDER MEDICATION PROVIDED. PT STATES UNDERSTANDING, AGREES TO KEEP PLUG OVERWRAP MACHINE TENDER AT THIS TIME. PT DENIES FURTHER NEEDS. STATES THAT ANTI-ANXIETY MEDICATION IS WORKING. GAURDS REMAIN AT BEDSIDE. CALL LIGHT WITHIN REACH.
--- NOTE | 2017-01-05 04:40 | NUR ---
PT ALERT AND ORIENTED THIS SHIFT. USING DATA SOLUTIONS ARCHITECT APPROPRIATELY, DROWSY AT TIMES. PT CONTINUES TO RATE ABD PAIN 8-910. PT REMOVED NG TUBE AT APPROXIMATELY 0400 AND LEFT OUT PER MD. NPO STATUS RESUMED CONSEQUENTLY. BT'S ACTIVE, PT REPORTS FLATUS. ABD TENDER TO PALPATION. PT REPORTS ANXIETY ATTACK X 1 UPON WAKING, HENCE PULLED NG TUBE OUT. PRN HALDOL GIVEN. IV PATENT, LR @ 85. UO QS. SBA, RESTRAINTS AND BELLY CHAIN PRESENT. GUARDS WITH PT WHILE WALKING AND AT BEDSIDE.
--- NOTE | 2017-01-05 07:30 | NUR ---
REPORT RECEIVED FROM KIRILL MANE. PT BACK IN BED AFTER GOING TO IMAGING. PT DROWSY AFTER PUSHING HIS BAND SCROLL SAW OPERATOR BUTTON. GUARDS IN ROOM.
--- NOTE | 2017-01-05 08:30 | NUR ---
ADMINSTERED MORNING MEDS. PT TOLERATED WELL. STATED HE WOULD LIKE TO SHOWER LATER.
--- NOTE | 2017-01-05 10:10 | NUR ---
PT SALINE LOCKED FOR SHOWER. PT STATES HE DOES NOT LIKE THE TRANSMISSIONS SYSTEMS OPERATOR HE FORGETS TO PUSH THE BUTTON. EDUCATED PT ON PROPER USE AND IF HE IS ASLEEP THAT INDICATES HE DOES NOT NEED IT. ASLO TALKED ABOUT NARCOTICS AND BOWEL PROBLEMS. PT SEEMED TO UNDERSTAND.
--- NOTE | 2017-01-05 10:40 | NUR ---
PT. TOOK SHOWER. VITALS DONE, PT. DOES NOT HAVE TOILITING NEEDS AT THIS TIME. WILL CHECK IN 1 HOUR TO ASSESS TOILITING NEEDS.
--- NOTE | 2017-01-05 12:40 | NUR ---
PT OFF THE FLOOR TO SURGERY WITH KIRILL BLANKENSHIP. PT HAD WIPEDOWN, STRAIGHT TUBING. IV AB HANGING. IV FLUSHES WELL. GUARD WITH PT.
--- NOTE | 2017-01-05 13:32 | HP ---
[facility] [address] [place], [place] [address] Signed ADMIT DATE: 01/04/2017 REASON FOR ADMISSION: Recurrent obstructive symptoms related to Crohn's disease. HISTORY OF PRESENT ILLNESS: This 26-year-old white male was recently discharged from hospital by me on December 31 having been hospitalized for several days prior to that with a bowel obstruction considered likely related to his well-established Crohn's disease diagnosis. At that time, a confluence of inflammatory changes in the right lower abdomen, not specifically the terminal ilium, however, showed obstructive pattern and with tethering of the sigmoid colon. Mindful of his underlying diagnosis of Crohn's disease and without prior history of intraabdominal operation, but with prior relatively recent placement of an anal yellow vessel loop seton for a perianal fistula, he was managed with intravenous steroids and bowel rest. By time of discharge, he was markedly improved on a followup CT scan and a regimen of prednisone anti-inflammatory medication was outlined. He [facility] to the jail, had at least 1 bowel movement but then began having abdominal pain and so forth yesterday. He presented to the emergency room where he was evaluated by Dr. Mills and I was called about his recurrent symptoms. A CT scan was repeated which showed diffusely fluid-filled small and large bowel to the level of the rectum, thought likely of "ileus" with a short segment of decompressed ilium distally and a mildly dilated fluid-filled bowel as well. He had thickening of the terminal ilium thought related to Crohn's disease. He was noted to have a normal white count of 11.7, hematocrit of 49.2, electrolytes normal, creatinine of 0.73. Liver enzymes were normal, albumin 4.5, globulin 3.6. It is well known that he had anaphylaxis related to Remicade therapy in the past as well as similar reaction to Humira, and therefore, he has been maintained on a mesalamine preparation. He was intolerant of the nasogastric tube and an orogastric tube was placed which had minimal drainage. He quickly extubated the tube (not surprisingly), and I have replaced his nasogastric tube with all due care, which he has thus far tolerated well. He is admitted for further evaluation and care, likely to require operative intervention. PAST MEDICAL HISTORY: Does include Crohn's disease as previously described, manifested primarily as anal fistula and vague abdominal pain. Additionally, he has anxiety disorder. MEDICATIONS AT ADMISSION: Included melatonin 3 mg p.o. daily, tramadol 50 mg p.o. t.i.d., mesalamine (Delzi col) 800 mg p.o. t.i.d., lactulose 45 mL p.o. b.i.d. as needed, Strattera (atomoxetine) 80 mg p.o. q.h.s. and Lexapro 10 mg p.o. q.h.s. as well as hydroxyzine 50-100 mg p.o. Electronically Signed By: ROBBIN PIMENTEL MD 01/05/17 1332 PATIENT NAME: ADRIENNE CANALES HISTORY AND PHYSICAL DATE OF : [birth year] PHYSICIAN: ROBBIN PIMENTEL MD REPORT #: [id number] REPORT IS CONFIDENTIAL AND NOT TO BE RELEASED WITHOUT AUTHORIZATION [address] [place], [place] [address] Signed t.i.d. as needed. SOCIAL HISTORY: He is incarcerated at [facility]. His primary managing physician is Dr. Grady Amaro at the jail. REVIEW OF SYSTEMS: He denies any shortness of breath or chest pain. He has had no dysphagia particularly. He does have soreness of his nasal passages related to attempt at passage of nasogastric tube. PHYSICAL EXAMINATION: GENERAL: Tall white man who is shaved bald. He does not look systemically toxic at this time. Trachea is midline. He has no crepitus. CHEST: Clear. HEART: Regular without murmur. ABDOMEN: Somewhat obese but soft. Easily palpated. No focal tenderness, no ascites, no obvious mass. EXTREMITIES: Show no clubbing, cyanosis or edema. Nasogastric tube was placed by me with great care, delivering only clear fluid at this time. ASSESSMENT AND PLAN: I was hopeful and optimistic that his course of steroids would allow for the management of the edema of the bowel causing the obstruction. At this point, it is likely he will need operation for durable relief of the obstructive process. Decompression of the stomach is necessary and nasogastric tube has been placed. We will check a chest x-ray for nasogastric tube placement. He will be maintained on steroids as previously. Management of his anxiety issues will be of some importance considering his behavior in the past when not on them. Operative intervention would likely be necessary but optimization of his fluid status and so forth would be important first of course. We have discussed this in detail. MD ROMERO Cooper/Jarred /[id number] cc: Electronically Signed By: ROBBIN PIMENTEL MD 01/05/17 1332 PATIENT NAME: ADRIENNE CANALES HISTORY AND PHYSICAL DATE OF : [birth year] PHYSICIAN: ROBBIN PIMENTEL MD REPORT #: [id number] REPORT IS CONFIDENTIAL AND NOT TO BE RELEASED WITHOUT AUTHORIZATION [address] [place], [place] [address] Am[address] [facility] Electronically Signed By: ROBBIN PIMENTEL MD 01/05/17 1332 PATIENT NAME: ADRIENNE CANALES HISTORY AND PHYSICAL DATE OF : [birth year] PHYSICIAN: ROBBIN PIMENTEL MD REPORT #: [id number] REPORT IS CONFIDENTIAL AND NOT TO BE RELEASED WITHOUT AUTHORIZATION
--- NOTE | 2017-01-05 15:01 | NUR ---
PT REMAINS OFF FLOOR.
--- NOTE | 2017-01-05 16:32 | NUR ---
REPLACED EMPTY FOOD SERVICE HOTEL RUNNER CARTRIDGE WHILE PT IN SURGERY. BROKE 1ST ONE PUTTING IN MACHINE. WASTED AND RETURNED TO PHARM. HAD HOUSEKEEPING SWEEP FLOOR. SUCCESSFULLY REPLACED WITH SECOND SYRINGE. GUARDS TRYING TO CHANGE SHIFT, HOWEVER ONE GUARD IS STILL IN SURGERY SUITE WITH PT.
--- NOTE | 2017-01-05 17:32 | NUR ---
01/05/17 1732 Lary Ferrer ORAL AIRWAY IN PLACE. RR EVEN AND UNLABORED. EOCI OFFICER @ BS. LEG CHAINS PLACED BY OFFICER TO PT.
--- NOTE | 2017-01-05 18:31 | NUR ---
PT BACK TO FLOOR FROM SURGERY WITH WEAVE DEFECT CHARTING CLERK. PT RATES PAIN 10\10 WHILE AWAKE BUT DOZES QUICKLY. GUARDS IN ROOM. SHACKLES OFF OF UPPER EXTREMETIES AT THIS TIME. HOOKED BACK UP TO IVF AND MELTER SUPERVISOR OPEN HEARTH FURNACE. DRESSINGS CDI. HARGROVE IN PLACE DRAINING YELLOW URINE WITH SEDIMENT.
--- NOTE | 2017-01-05 18:49 | NUR ---
PT. IN BED THROUGHOUT MORNING WITH SHACKLES X4 AND TWO GUARDS PRESENT. PT. STATED "I DO NOT LIKE THE AUTOMOTIVE MANUFACTURER BECAUSE I FORGET TO PUSH THE BUTTON." EDUCATION PROVIDED. PT. WAS IN SURGERY FOR MAJORITY OF AFTERNOON. AFTER SURGERY, PT. WAS AGITATED COMPLAINING OF UNRELIEVED PAIN. HALDOL ADMINISTERED. HARGROVE IN PLACE. HYPERTENSIVE DURING AND AFTER SURGERY. ALL OTHER VITALS STABLE. NO COMPLAINTS OF NAUSEA.
--- NOTE | 2017-01-05 18:53 | NUR ---
ADMINISTERED HALDOL PRN FOR AGITATION. TOLERATED WELL. PLACED ON CONTINUOUS PULSE OX. GUARDS IN ROOM. PT IN RESTRAINTS, BOTH LEGS AND ONE ARM.
--- NOTE | 2017-01-05 19:20 | NUR ---
BEDSIDE REPORT RECEIVED FROM OFFGOING NURSES. PT RESTING IN BED WITH EYES CLOSED. RESPIRATIONS EVEN AND UNLABORED. PULSE OX IN PLACE. PT APPEARS TO BE SLEEPING. GUARDS AT BEDSIDE. CALL LIGHT WITHIN REACH.
--- NOTE | 2017-01-05 20:30 | NUR ---
POST OP VITALS X 2 COMPLETE. WNL. PT RESTING WITH EYES CLOSED, APPEARS TO BE SLEEPING. WAKES EASILY TO TOUCH. PT RATES PAIN 10/10. REINFORCED EDUCATION REGARDING TILER'S ASSISTANT USE. PT PUSHES BUTTON APPROPRIATELY. PT FALLS BACK TO SLEEP EASILY. GUARDS AT BEDSIDE REPORT THAT PT HAS APPEARED TO HAVE BEEN SLEEPING FOR THE PAST HOUR. PT CALL LIGHT WITHIN REACH. PT DENIES FURTHER NEEDS.
--- NOTE | 2017-01-05 21:07 | NUR ---
PT LYING IN BED WITH EYES CLOSED. RESPIRATIONS EVEN AND UNLABORED, PT APPEARS TO BE SLEEPING. PT WAKES EASILY. REPORTS PAIN 10/10. PUSHES PROCESS CONTROL ENGINEER BUTTON APPROPRIATELY. POST OP VITALS PERFORMED, WNL. PT FALLS BACK TO SLEEP EASILY. GUARDS AT BEDSIDE REPORT THAT PT HAS BEEN SLEEPING BETWEEN POSTOP VITALS. CALL LIGHT WITHIN REACH. PT DENIES FURTHER NEEDS.
--- NOTE | 2017-01-05 21:50 | NUR ---
PT ASSESSMENT COMPLETE. PT RESTING WITH EYES CLOSED WHILE MEDICINAL CHEMIST MOVING ABOUT IN ROOM. PT WAKES TO GENTLE TOUCH AND NAME BEING CALLED. PT RATES PAIN 10/10 TO ABDOMEN. FIRM BLANKET PROVIDED FOR SPLINTING, EDUCATION PROVIDED. EDUCATION REINFORCED REGARDING DIRECTOR DANCE. PT USES BUTTON APPROPRIATELY. PT STATES THAT DIRECTOR DANCE DOSE IS "TOO SMALL". EDUCATION REGARDING DILAUDID VS MORPHINE PROVIDED. PT STATES UNDERSTANDING. REMINDED PT THAT HE HAS BEEN RESTING PEACEFULLY. PT REQUESTS EAR PLUGS AND SLEEP MASK. POST OP VITALS COMPLETED, WNL. HARGROVE DRAINING YELLOW URINE WITH MINIMAL SEDIMENT PRESENT. EDUCATION PROVIDED TO PATIENT REGARDING CATHETER, WITH STRONG ADVISEMENT NOT TO PULL CATHETER OUT. PT STATES UNDERSTANDING. PT DENIES FURTHER NEEDS. CALL LIGHT WITHIN REACH, GUARDS REMAIN AT BEDSIDE.
--- NOTE | 2017-01-06 00:27 | NUR ---
PT RESTING IN BED WITH EYES CLOSED. RESPIRATIONS ARE EVEN AND UNLABORED. PT APPEARS TO BE SLEEPING, SA02 92%. PT DOES NOT AWAKE WHILE SIGNALS INTELLIGENCE SUPERINTENDENT TALKING WITH GUARDS AT BED. CALL LIGHT WITHIN PT'S REACH.
--- NOTE | 2017-01-06 01:04 | NUR ---
PT RESTING IN BED WITH EYES CLOSED. RESPIRATIONS EVEN AND UNLABORED. PT APPEARS TO BE SLEEPING. PT WAKES EASILY HOWEVER, REMAINS DROWSY. PT RATES PAIN 10/10. FALLS BACK TO SLEEP EASILY. SAO2 92%. CALL LIGHT WITHIN REACH.
--- NOTE | 2017-01-06 02:18 | NUR ---
PT RESTING WITH EYES CLOSED. WAKES EASILY. PT RATES PAIN 10/10. PT ASSESSMENT COMPLETED. PT TAKING SHALLOW BREATHS, STATES THAT IT IS PAINFUL TO TAKE DEEP BREATHS. RESPIRATORY EDUCATION PROVIDED. PT STATES UNDERSTANDING, CONTINUE TO REINFORCE. DRESSING TO MIDLINE AND SUPERIOR MIDLINE ABD C/D/I. CLEANER OPERATOR SYRINGE REPLACED. PT DENIES FURTHER NEEDS, CALL LIGHT WITHIN REACH.
--- NOTE | 2017-01-06 05:35 | NUR ---
PT RESTING WITH EYES CLOSED. RESPIRATIONS EVEN AND UNLABORED. SA02 92%. PT APPEARS TO BE SLEEPING. GUARDS PRESENT AT BEDSIDE. CALL LIGHT WITHIN REACH.
--- NOTE | 2017-01-06 06:25 | NUR ---
PT SLEPT MAJORITY OF SHIFT. WAKES BRIEFLY, RATES PAIN 10/10, EASILY FALLS BACK TO SLEEP. PT USING HOSTESS CASHIER APPROPRIATELY. MIDLINE DRESSING C/D/I. BT'S HYPOACTIVE. ENCOURAGE DEEP BREATHING, SPLINTING OF ABD WITH MOVEMENT AND DEEP BREATH. ABD TENDER WITH PALPATION, MOVEMENT, DEEP BREATH. CLEAR LIQUID DIET. LR @ 85. HARGROVE CATH, YELLOW URINE WITH SEDIMENT, UO QS. SBA. RESTRAINTS/BELLY CHAIN. GUARDS AT BEDSIDE.
--- NOTE | 2017-01-06 07:39 | NUR ---
BEDSIDE REPORT RECEIVED FROM ALHAJI ROY. GUARDS AT BEDSIDE. PT SLEEPING. WILL ENCOURAGE PATIENT TO AMBULATE THIS MORNING WHEN AWAKE.
--- NOTE | 2017-01-06 12:29 | NUR ---
HAS HAD FLARE UP WITH CHRONS. JUST RECENTLY TREATED FOR SIMILAR PROBLEM. PT IS VERY POLITE, SECURITY TEAM RESPECTFUL. PT THANKED ME FOR COMING IN. WILL CON- TINUE TO FOLLOW
--- NOTE | 2017-01-06 13:22 | NUR ---
pt up for ambulation of 2 laps around unit. attempted to void after walking. unable to void. bladder scan shows 277cc in bladder. will continue to monitor.
--- NOTE | 2017-01-06 17:15 | NUR ---
AMBULATED HALLS X3 TODAY. HARGROVE OUT THIS MORNING. URINATED 400CC THIS AFTERNOON. CLEAR LIQ DIET. IND AMB. ENCOURAGE DEEP BREATHS. REPAIRED STRUCTURE AND FISTULA 01/05/17. DILAUDID INDUSTRIAL RELATIONS WORKER.
--- NOTE | 2017-01-06 18:55 | NUR ---
PT HAVING ANXIETY EPISODE. SCDs REMOVED. SCD MACHINE UNPLUGGED AND AT FOOT OF BED. PT ASKED TO BE TAKEN OFF OF IVF. EDUCATED ON INABILITY TO GIVE PRIVATE BRANCH EXCHANGE SERVICE ADVISER DILAUDID IF SALINE LOCKED. IVF IN PLACE. ATIVAN GIVEN. PT PACING ROOM.
--- NOTE | 2017-01-06 19:55 | NUR ---
REPORT RECEIVED FROM DENTAL DETAIL REPRESENTATIVE.
--- NOTE | 2017-01-06 21:45 | NUR ---
PT ASSESSMENT COMPLETED. PT CONTINUES TO BE UP IN ROOM PACING BY BEDSIDE, REMOVING LINEN FROM BED. PT REPORTS THAT HE IS QUITE ANXIOUS, REQUESTS MEDICATION FOR ANXIETY. PRN HALDOL GIVEN. MEPILEX AND OPSITE TO ABD C/D/I. PT RATES PAIN 9/10. EDUCATION REINFORCED ON MACHINE INKER USE. PT PUSHES BUTTON APPROPRIATELY. BT'S ACTIVE. PT DENIES FLATUS TODAY. PT REPORTS WALKING IN THE [employer] [place] IN THE DAY, STATES THAT HE TOLERATED WELL. PT LYING IN BED, DENIES NEEDS. CALL LIGHT WITHIN REACH. GUARDS X2 PRESENT AT BEDSIDE.
--- NOTE | 2017-01-07 00:05 | NUR ---
PT RESTING WITH EYES CLOSED. RESPIRATIONS ARE EVEN AND UNLABORED. PT APPEARS TO BE SLEEPING. GUARDS PRESENT AT BEDSIDE. CALL LIGHT WITHIN REACH.
--- NOTE | 2017-01-07 01:12 | NUR ---
pt resting with eyes closed, respirations even and unlabored. pt wakes easily to name being called. pt rates pain 9/10, pushes group supervisor yard button. pt drifts easily back to sleep. niyaurds present at bedside. call light within reach.
--- NOTE | 2017-01-07 02:45 | NUR ---
PT LYING IN BED WITH EYES OPEN DUE TO HEARING HEALTHCARE PRACTITIONER ALARMING. ALARM SILENCED, PT EASILY FALLS BACK TO SLEEP. WAKES EASILY TO NAME. PT RATES PAIN 9/10, QUICKLY FALLS BACK TO SLEEP. DENIES NEEDS. CALL LIGHT WITHIN REACH.
--- NOTE | 2017-01-07 05:06 | NUR ---
PT SLEPT MAJORITY OF SHIFT. REPORTED ANXIETY AT THE BEGINNING OF SHIFT, TAKING LINENS OFF OF BED, PACING HALLS. PRN HALDOL GIVEN. PT CONTINUES TO RATE PAIN 9/10, REMAINS DROWSY AND FALLS TO SLEEP EASILY. MEPILEX AND OPSITE X 2 TO ABD, CDI. TOLERATING CLEAR LIQUID DIET WELL. UO QS. DILAUDID PLATEN PRESS OPERATOR APPRENTICE.
--- NOTE | 2017-01-07 06:35 | NUR ---
PT RESTING IN BED WITH EYES CLOSED. WAKES EASILY. RATES PAIN 9/10, PUSHES CHEMICAL SPRAYER BUTTON. DRIFTS BACK TO SLEEP EASILY. GUARDS REMAIN AT BEDSIDE. CALL LIGHT WITHIN REACH.
--- NOTE | 2017-01-07 06:39 | NUR ---
NURSE NOTIFIED BP.
--- NOTE | 2017-01-07 07:30 | NUR ---
REPORT RECIEVED FROM KIRILL MANE. PT SLEPT MOST OF NIGHT BUT CONTINUED TO RATE PAIN 9\10 WHEN AWOKENED. PT SLEEPING NOW. GUARDS IN ROOM.
--- NOTE | 2017-01-07 08:18 | NUR ---
MED REC COMPLETE
--- NOTE | 2017-01-07 10:41 | NUR ---
ADMINISTERED ATIVAN PER PT REQUEST FOR ANXIETY. SALINE LOCKED AND COVERED IV SITE FOR SHOWER. GUARDS ASSISTING WITH SHOWER. LIME SLUDGE MIXER PLACED ALL TOWELS AND ACCESS. PT DENIES FURHTER CONCERNS.
--- NOTE | 2017-01-07 10:45 | NUR ---
PATIENT UP TO SHOWER. AMBULATED IN HALLWAY. LINENS CHANGED.
--- NOTE | 2017-01-07 11:46 | NUR ---
PATIENT UP IN CHAIR EATING LUNCH CALL BUTTON IN REACH.
--- NOTE | 2017-01-07 12:45 | NUR ---
DR IN TO ASSESS PT. ADVANCED DIET TO FULL LIQUID. PT EXCITED.
--- NOTE | 2017-01-07 14:10 | NUR ---
PT WALKING IN SCHROEDER AGAIN FOR 3RD TIME TODAY. TOLERATING WELL. PT STATES THE CHAIR PAD MAKER IS NOT WORKING WELL AND WOULD LIKE TO BE SWITCHED TO PO PAIN PILLS.
--- NOTE | 2017-01-07 14:24 | NUR ---
PATIENT UP AMBULATING HALLWAY WITH GUARDS.
--- NOTE | 2017-01-07 15:08 | NUR ---
SPOKE WITH DR PIMENTEL REGARDING THE PT STATUS OF OBSERVATION AND NOW AWAITING TO HEAR FROM QUALITY/ADMINISTRATION.
--- NOTE | 2017-01-07 16:51 | NUR ---
PT TOLERATED FULL LIQ TRAY WELL EARLIER. ORDERED ANOTHER FOR DINNER. PT UP WALKING IN SCHROEDER WITH GUARDS AGAIN.
--- NOTE | 2017-01-07 18:30 | NUR ---
patient sitting up in chair with call button in reach. no needs at this time. guards in room.
--- NOTE | 2017-01-07 19:15 | NUR ---
REPORT RECEIVED FROM OFFGOING NURSE. PT WALKING SEVERAL LAPS IN THE SCHROEDER WITH GUARDS.
--- NOTE | 2017-01-07 20:45 | NUR ---
PT ASSESSMENT COMPLETE. PT SITTING UP IN CHAIR WITH GUARDS PRESENT X2 IN ROOM. PT RATES PAIN 8/10. STATES THAT HE IS FEELING BETTER THAN THE LAST FEW DAYS. PT HAS BEEN UP AMBULATING IN THE HALLS MULTIPLES LAPS WITH GUARDS. PT STATES THAT HE PLANS TO WALK 1 TO 2 MORE TIMES TONIGHT. ABDOMEN REMAINS TENDER, BT'S HYPO ACTIVE. PT DENIES PASSING FLATUS TODAY. MEPILEX AND OPSITE C/D/I. PT USING CAREER COORDINATOR APPROPRIATELY. DENIES OTHER NEEDS. CALL LIGHT WITHIN REACH.
--- NOTE | 2017-01-07 21:45 | NUR ---
SCHEDULED MEDICATIONS ADMINISTERED. PT LYING IN BED, EYES CLOSED, APPEARS TO BE SLEEPING. WAKES EASILY, AND DOZES BACK OFF EASILY. PT DENIES FURTHER NEEDS. CALL LIGHT WITHIN REACH.
--- NOTE | 2017-01-07 23:53 | NUR ---
PT RESTING IN BED WITH EYES CLOSED. RESPIRATIONS EVEN AND UNLABORED. PT APPEARS TO BE SLEEPING. GUARDS X 2 PRESSENT AT BEDSIDE.
--- NOTE | 2017-01-08 02:50 | NUR ---
PT RESTING IN BED WITH EYES CLOSED. APPEARS TO BE SLEEPING. GUARDS REMAIN AT BEDSIDE X 2. CALL LIGHT WITHIN REACH.
--- NOTE | 2017-01-08 05:05 | NUR ---
PT ASSESSMENT COMPLETED. PT WIDE AWAKE SITTING AT BEDSIDE. CONTINUES TO RATE PAIN 8/10. WONDERS WHAT TIME HE CAN START WALKING IN THE SCHROEDER. REQUESTS APPLE JUICE AND COFFEE, INQUIRES WHAT TIME BREAKFAST IS SERVED. PT'S ABD REMAINS FIRM/TENDER. MEPILEX AND OPSITE C/D/I. PT DENIES PASSING GAS THIS SHIFT. DNIES NAUSEA. CALL LIGHT WITHIN REACH.
--- NOTE | 2017-01-08 05:08 | NUR ---
PT SLEPT WELL THROUHGOUT THE SHIFT. WIDE AWAKE THIS AM. DILAUDID APPLICATIONS SYSTEMS ENGINEER, PT TOLERATING WELL. PT AGREES HE IS FEELING BETTER, RATES PAIN 8/10. ABD REMAINS FIRM/TENDER. MEPILEX AND OPSITE C/D/I. BT'S HYPOACTIVE. PT DENIES FLATUS THIS SHIFT. TOLERATING FULL LIQ DIET WELL. D5LR @ 85. PT WALKING IN HALLS FREQUENTLY.
--- NOTE | 2017-01-08 07:10 | NUR ---
REPORT RECEIVED FROM KIRILL MANE. PT SLEPT WELL LAST NIGHT. PT CONCERNED THAT HE FEELS GASSY. REASSURED HIM THAT IS NORMAL AND TO WALK UNTIL IT COMES OUT. GUARDS IN ROOM.
--- NOTE | 2017-01-08 08:38 | NUR ---
PT WALKED IN SCHROEDER MULTIPLE LOOPS. GUARDS AT SIDE. PT STILL REPORTS FEELING GASSY.
--- NOTE | 2017-01-08 09:00 | NUR ---
patient called to complain about gas pain. had patient ambulate in hallway.
--- NOTE | 2017-01-08 09:20 | NUR ---
PT. BACK FROM AMBULATING IN HALLS WITH CORRECTIONAL OFFICERS. PT. STATES THAT HE HAS GAS. MORNING MEDICATIONS GIVEN AND ASSESSMENT DONE. NO FURTHER NEEDS AT THIS TIME.
--- NOTE | 2017-01-08 09:26 | NUR ---
asked patient if he would like to shower. patient states he would like to shower later today.
--- NOTE | 2017-01-08 09:39 | NUR ---
DR PIMENTEL IN TO SEE PT. WILL ORDER MOM, SUPPOSITORY, DC THE MACHINE STRIPPER CUTTER AND START ON PO. PAIN MEDS. PT REPORTS FEELING "GASSY".
--- NOTE | 2017-01-08 09:53 | NUR ---
PAIN MEDICATION ADMINISTERED. PT. SALINE LOCKED AND SALESPERSON AUTOMOBILES AND IVF DC'D. NO FURTHER REQUESTS AT THIS TIME.
--- NOTE | 2017-01-08 10:24 | NUR ---
NOTIFIED NURSE ABOUT HIGH BP.
--- NOTE | 2017-01-08 10:50 | NUR ---
SUPPLIER QUALITY ENGINEER NOTIFIED RN THAT PT.'S BP HAD AN ELEVATED DIASTOLIC PRESSURE. RN TOOK BP AGAIN WITH A RESULT OF 155/97. INSTRUCTED PT. TO LAY IN BED AND REST. WILL CONTINUE TO MONITOR.
--- NOTE | 2017-01-08 11:15 | NUR ---
PT SITTING UP IN CHAIR. AGAIN ASKING FOR SOLID FOOD. EDUCATED PT ON ADVANCING DIET SLOWLY. ORDERED A FULL LIQ. TRAY WITH AN ENSURE SHAKE. PT STATES HE IS "STARVING"
--- NOTE | 2017-01-08 11:44 | NUR ---
PT. REQUESTING SUPPOSITORY STATING THAT "THAT IS WHAT IS BLOCKING ME UP"
--- NOTE | 2017-01-08 12:52 | NUR ---
PT REPEATEDLY CALLED FOR SUPPOSITORY WHILE THIS RN WAS IN ANOTHER PT ROOM. TOLD HIM IT WOULD BE LESS THAN FIVE MINUTES FOR THIS RN TO PULL OUT OF PYXIS. RETURNED AND PLACED SUPP. WO DIFF. INSTRUCTED PT TO LAY IN BED LONG POSSIBLE TO GIVE IT A CHANCE TO WORK. PT VERBALIZED UNDERSTANDING.
--- NOTE | 2017-01-08 13:54 | NUR ---
pt up to restroom several times. showered. states that he really needs to have a bm but cannot. was only able to hold the suppository in for 5 minutes. back in bed after giving ativan, toradol and solucortef.
--- NOTE | 2017-01-08 14:55 | NUR ---
CALLED DR PIMENTEL REGARDING ELEVATED PULSE WHILE RESTING. ALERTED TO INCREASED PAIN AND FEELING NEED TOHAVE BM EARLIER. THINKS IT MAY BE PAIN AND ORDERED DILAUDID PRN. WILL CONTINUE TO MONITOR.
--- NOTE | 2017-01-08 14:56 | NUR ---
PT IN BED EYES CLOSED. USING I.S. X 10.
--- NOTE | 2017-01-08 16:08 | NUR ---
ASSESSED PT AGAIN. MORE AWAKE AND UP TO THE RESTROOM. STATES HE HAS MORE PAIN THAN THIS MORNING. ADMINISTERED DILAUDID. HR STILL ELEVATED.
--- NOTE | 2017-01-08 17:32 | NUR ---
REASSESSED PT. STATES HE IS "FEELING LIKE HE'S DYING" ASKED TO DESCRIBE AND PT STATES "HIS WHOLE ABD HURTS LIKE ITS TURNED INSIDE OUT". BT REMAIN HYPOACTIVE. VS ASSESSED, IMPROVING. AFEBRILE.
--- NOTE | 2017-01-08 17:34 | NUR ---
PT AMBULATED SEVERAL TIMES THIS MORNING. TOO PAINFUL THIS AFTERNOON. ENTERTAINMENT CENTRE MANAGER DC'D. GIVEN NORCO, TORADOL AND PO DILAUIDID FOR PAIN. SUPPOSITORY AND MOM GIVEN WITH NO RESULTS. HR ELEVATED AT REST, DR AWARE. BT HYPO. LUNGS CLEAR.
--- NOTE | 2017-01-08 18:02 | NUR ---
CALLED [facility] REGARDING ELEVATED HR AND RR. ORDERED LOPRESSOR ONCE AND BACK ON LR @85 AND NPO AGAIN.
--- NOTE | 2017-01-08 20:00 | NUR ---
RECEIVED REPORT AT 1900. FOUND PT IN BED SEDATED AND HAVING A REGRESSION FAR HIS RECOVERY IS CONCEREND. PT AROUSED TO VOICE.
--- NOTE | 2017-01-08 22:00 | NUR ---
NO BOWEL TONES WERE DETECTED DURING THE ABD EXAM. ABD IS MORE EXTNEDED THAN AT START OF THIS SHIFT. TEMP WAS 101.6, HR 140, BP 124/67. PT REPORTS PAIN /. MD PIMENTEL WAS CALLED AND NG TUBE PLACEMENT ALONG WITH A 1000 ML LR BOLUS WAS ORDERED.
--- NOTE | 2017-01-08 22:20 | NUR ---
NG TUBE WAS PLACED BY MD PIMENTEL SINCE PT HAS A HX OF REFUSING THEM. LR BOLUS IS RUNNING.
--- NOTE | 2017-01-08 22:37 | OR ---
[facility] [address], [place] [address] Signed DATE OF SERVICE: 01/05/2017 PREOPERATIVE DIAGNOSES: Recurrent small-bowel obstruction and relative large-bowel obstruction. Crohn's disease. POSTOPERATIVE DIAGNOSES: Incompletely obstructing the inflammatory cicatrix at ileocecal valve related to Crohn's disease. 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 PROCEDURES: Diagnostic laparoscopy with lysis of adhesions. Laparotomy with ileocolectomy and [id number] ileocolonic anastomosis. Repair of ileocecal-sigmoidal fistula. Endomark tattoo marking of the rectosigmoid at area of fistula repair, all this prolonged complicated difficult. SURGEON: Robbin Pimentel MD. ROPE TOW OPERATOR: Nurse (Jojo Perea RN) ANESTHESIA: General endotracheal (Abimbola Melendez CRNA). INDICATION: This 26-year-old white man is a prisoner at [facility] and well known to have Crohn's disease. A few weeks ago, he underwent placement of the yellow vessel draining seton for a perianal abscess. The patient has been diagnosed with Crohn's disease in the past including endoscopic evaluation by Dr. Mitchell in the [facility]. Treatment with Remicade and Humira were both met with findings of anaphylaxis and therefore he has been maintained with Delzicol primarily. Prior to last week, he was admitted to the hospital with small bowel obstruction as well as marked colonic dilation. CT scan findings showed inflammatory changes in the right lower abdomen in the region of the ileum as well as tenting of the rectosigmoid to the inflammatory cicatrix. It was thought most likely this represented a Crohn's related inflammatory changes. He was managed with intravenous steroids and other measures and converted to prednisone and discharged from the hospital on or about December 31. A plan for tapering of prednisone, maintenance of a low-fiber diet and so forth was outlined. He returned to the emergency room on 01/03/2017 with findings suggestive of recurrent obstruction. Electronically Signed By: ROBBIN PIMENTEL MD 01/08/17 2237 PATIENT NAME: ADRIENNE CANALES OPERATIVE REPORT DATE OF : [birth year] PHYSICIAN: ROBBIN PIMENTEL MD REPORT #: [id number] REPORT IS CONFIDENTIAL AND NOT TO BE RELEASED WITHOUT AUTHORIZATION [facility] [address] [place] [id number] Signed It had already been planned that he undergo colonoscopy to assess the level of activity of his Crohn's disease when I last saw him in an outpatient settings a few weeks ago, it is noted. Additionally, it was planned at some point, that he may undergo a small-bowel follow-through. HISTORY: On admission, showed liquids and so forth within the colon, relative obstruction and some dilation of the small bowel, but not as severe as his initial episode. He was admitted, given intravenous fluids, IV steroids and the nasogastric tube was placed which has allowed improvement; however, he continues to have a fair amount of abdominal pain in the right lower abdomen. Mindful that continued conservative management would be an option but also noting essentially failure of progression of his therapeutic approach with steroid treatment of his inflammatory cicatrix, I have recommended laparoscopy, possible laparoscopic ileocolectomy as necessary, possible open procedure depending on findings. He understands the risks of bleeding, infection, failure of diagnosis, misdiagnosis, recurrent disease, and other unforeseen complications and wished to proceed. FINDINGS: On laparoscopy, much of the small bowel is decompressed and not inflamed at all. In the region of the ileocecal valve, however there was a dense cicatrix and inflammatory change and a rock-hard mass like inflammatory process at the ileocecal valve. Additionally, this entire inflammatory process was contiguous with rectosigmoid, no doubt causing relative obstruction of the colon. Conversion to open operation was required despite attempts to provide for a laparoscopic takedown of the obvious fistula. Ultimately, a small portion of the sigmoid was resected with a stapling device and that site oversewn and later marked with Endomark tattoo dye anticipating colonoscopy in the future and hoping to identify the site of the fistulous connection. Ileocolectomy was performed and a [id number] ileocolonic anastomosis performed. The remaining small bowel appeared normal without signs of inflammatory changes. The liver and gallbladder were normal. Spleen was normal as well. PROCEDURE: The patient was brought to the operating room, given a general endotracheal anesthetic. He received preoperative antibiotic cefoxitin. Sequential compression device and stockings were in place and heparin subcutaneously administered. Indeed, he had subcutaneous bruising in his abdomen from that. After satisfactory general endotracheal anesthesia, a Gonzalez catheter was placed without problem. An orogastric tube was placed as well though not much was noted from it. The abdomen was clipped and prepared with chlorhexidine solution and draped sterilely. An infraumbilical incision was made and using an open Tino cannula technique pneumoperitoneum was achieved to a level of 14 Electronically Signed By: ROBBIN PIMENTEL MD 01/08/17 2237 PATIENT NAME: ADRIENNE CANALES OPERATIVE REPORT DATE OF : [birth year] PHYSICIAN: ROBBIN PIMENTEL MD REPORT #: [id number] REPORT IS CONFIDENTIAL AND NOT TO BE RELEASED WITHOUT AUTHORIZATION [place] [id number] [facility] [place], [place] [address] Signed mmHg of carbon dioxide gas. Intraabdominal inspection showed no sign of ascites or carcinomatosis. The small bowel appeared reasonably decompressed and relatively normal overall. A 12 mm epigastric port was placed and cannula replaced to that site. Single hand palpation of the small bowel showed it to be normal but there was a dense firm mass in the region of the ileocecal valve. Creeping fat was noted in the ileum in the region as well consistent with Crohn's disease diagnosis. A 5 mm suprapubic port was placed under direct visualization allowing for 2-hand manipulation. Inflammatory mass at the ileocecal valve was very typical of ileocolonic Crohn's disease. The appendix could not be distinguished from it. With various manipulations, it was clear that this cicatrix was densely tethered deep into the pelvis far more than usual. The small bowel was run from the area that was free of the inflammation more proximally and showed no evidence of other lesions within the small bowel. The bed was rotated to accommodate complete small-bowel evaluation. With further manipulation and retraction of the small bowel out of the way, it was clear that there was a dense inflammatory process to the rectosigmoid junction. The colon itself appeared normal. It appeared that fistulization of the inflammatory cicatrix to the rectosigmoid had occurred. Various manipulations were undertaken to free this process from the rectosigmoid, however, it simply could not be done. On that basis, conversion to a laparotomy was necessary. Incision was made from the umbilicus to the symphysis pubis. He had large rectus abdominis muscles. The Bookwalter retractor with the small ring was used for exposure. There was some amount of blood in the abdomen thought initially due to dissection in the ileocecal valve, but later found to be from the epigastric trocar site which was later secured with 0 Vicryl suture until hemostatic. The small bowel was once again re-evaluated and the inflammatory cicatrix was densely adherent to the rectosigmoid. The small bowel was packed to the left side of the abdomen and the white line of Toldt in the region of the cecum was divided and the right colon rotated to the midline using blunt dissection. Enlarged ileocolonic lymph nodes were noted as well. The small bowel was demarcated as completely normal approximately 10 cm from the ileocecal valve itself. It was cumbersome to manipulate the small bowel and the inflammatory cicatrix of the ileocecal valve with dense adhesions to the rectosigmoid. Ultimately, a window was created between the 2 segments and a 55 mm ANALILIA stapler used to transect the fistulous connection between the sigmoid and the inflammatory cicatrix of the ileocecal tissue. This still allowed for a very good lumen to the rectosigmoid and I believe relief of the obstructive process that was caused by tenting and distortion of the rectosigmoid. Electronically Signed By: ROBBIN PIMENTEL MD 01/08/17 2237 PATIENT NAME: ADRIENNE CANALES OPERATIVE REPORT DATE OF : [birth year] PHYSICIAN: ROBBIN PIMENTEL MD REPORT #: [id number] REPORT IS CONFIDENTIAL AND NOT TO BE RELEASED WITHOUT AUTHORIZATION [facility] [address] [place], [place] [address] Signed Notably the entire colon did have a fair amount of soft stool within it. Now that the ileal colonic inflammatory cicatrix was completely freed of the sigmoid, it could be more fully mobilized. Ultimately, an area of the mesentery just above the cecum and proximal to the ileocecal valve could be demarcated for transection. The mesentery was scored with electrocautery. An application of hemostats undertaken the vascular pedicles securing them fully with 0 silk ties and in a very thickened portions with a 3-0 silk suture. A ANALILIA stapling device was used to transect the cecum from the ascending colon, as well as the terminal ileum. 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 There is no evidence of malignancy preoperatively. The staple lines of the ileum and the cecum were oversewn with interrupted 3-0 Vicryl so as to avoid raw staple lines and minimize chance of fistulization. The area of the rectosigmoid with transection of the fistulous tract was undertaken, was oversewn with interrupted 3-0 silk sutures as well. Using some Endomark and a 30-gauge needle, the area of transection of the fistula was marked with Endomark tattoo dye to allow for visualization in a future colonoscopy that was anticipated. The wound was then isolated and plans made for ileocolonic anastomosis. Mindful of the high probability of recurrent Crohn's disease in the future, a mqid-pu-fmge ileocolonic anastomosis was undertaken. A 2 layer technique was undertaken with a serosal suture of 3-0 PDS suture and the mucosal suture of interrupted 3-0 Vicryl. Good hemostasis was noted and a widely patent anastomosis appreciated. Mesenteric defect between the remaining right colon and the ileum was reapproximated with interrupted 3-0 silk sutures minimizing chances of internal herniation. Irrigation was undertaken more full and examination of the upper abdomen, showed the trocar site in the epigastric area had some bleeding and some clots, indeed the most dominant source of blood loss from the case after all. This area was secured with 0 Vicryl sutures and electrocautery as appropriate. Irrigation was undertaken. The omentum replaced to a natural configuration of the abdominal contents as well as the small bowel returning to its normal position. The liver appeared normal as did the gallbladder. Attention was turned towards closure. The midline fascia was reapproximated with running bidirectional #1 PDS suture. Subcutaneous tissue irrigated thoroughly with saline solution. Skin closed with running subcuticular 3-0 Vicryl. Steri-Strips were applied as was a Mepilex silver sponge dressing including the epigastric port site. BLOOD LOSS: In aggregate about 200 mL probably less actually but most of it is related Electronically Signed By: ROBBIN PIMENTEL MD 01/08/17 2237 PATIENT NAME: ADRIENNE CANALES OPERATIVE REPORT DATE OF : [birth year] PHYSICIAN: ROBBIN PIMENTEL MD REPORT #: [id number] REPORT IS CONFIDENTIAL AND NOT TO BE RELEASED WITHOUT AUTHORIZATION [facility] [address] [place], [place] [address] Signed to the epigastric trocar site in fact. Sponge, needle, and instruments counts were reported as correct x3. The operation was prolonged, complicated, and difficult lasting over 3 hours which is far longer than usual. MD ROMERO Cooper/Jarred /[id number] Electronically Signed By: ROBBIN PIMENTEL MD 01/08/17 2237 PATIENT NAME: ADRIENNE CANALES OPERATIVE REPORT DATE OF : [birth year] PHYSICIAN: ROBBIN PIMENTEL MD REPORT #: [id number] REPORT IS CONFIDENTIAL AND NOT TO BE RELEASED WITHOUT AUTHORIZATION
--- NOTE | 2017-01-09 00:34 | NUR ---
DR PIMENTEL CALLED FOR UPDATE ON PT, REPORTED PT IS RESTING QUIETLY, HEART RATE HAS COME DOWN WITH FLUIDS HR-102. NGT PATENT. IVF PATENT.
--- NOTE | 2017-01-09 01:20 | NUR ---
PT STATED THAT HIS PAIN IS MUCH BETTER AT THIS TIME. I FLUSHED NG TUBE X2 SO FAR. OUTPUT SO FAR HAS BEEN 900 ML. PT WAS GETTING ANXIOUS AND RECEIVED 0.5MG IV ATIVAN. PT ALSO VOIDED 380ML. PT IS BACK IN BED RESTING
--- NOTE | 2017-01-09 02:49 | NUR ---
PT KEPT COMPLAINING ABOUT PAIN BEING A 10/10. I GAVE HIM 1MG IV DILAUDED SINCE PT DID NOT APPEAR SEDATED ANYLONGER. PT WAS PUT ON FLOOR TILING PROFESSIONAL FOR MONITORING PURPOSES. PT AT THIS TIME IS AFEBRILE AND HIS HR IS DOWN TO ABOUT 100-120.
--- NOTE | 2017-01-09 03:33 | NUR ---
PT IS SLEEPING AT THIS TIME. NG TUBE IS STILL PUTTING OUT.
--- NOTE | 2017-01-09 05:41 | NUR ---
AT AROUND 0500 PT STARTED TO GET AGITATED AND THREATENED TO PULL OUT HIS NG TUBE AND IV. MD PIMENTEL WAS CALLED. HALDOL 5MG IV Q10MIN WAS GIVEN X2 AND 1MG OF ATIVAN IV. PT AT THIS TIME IS MUCH CALMER AND I WILL REASSESS HIM SHORTLY. HR IS BACK UP IN THE 120'S. O2 SATS ARE >95%.
--- NOTE | 2017-01-09 06:00 | NUR ---
LT ESCOBEDO CALLED THE GUARDS BACK AND ORDERED THEM TO RESTRAIN THIS PT WITH ZIP TIES TO HIS WAIST.
--- NOTE | 2017-01-09 06:30 | NUR ---
LAB CALLED WITH A CRITICAL WBC OF 31.9. MD PIMENTEL WAS CALLED. RECEIVED ORDER FOR A CHEST X-RAY AND TIMETIN ABX 3G IV. THIRD DOSE OF HALDOL WAS NOT GIVEN DUE TO PT BEING SEDATED ENOUGH TO WHERE HE IS NOT AGITATED ANYLONGER.
--- NOTE | 2017-01-09 09:13 | NUR ---
coop with assessment. NGT r side, IV left forearm, cont pulse ox in place. HOB elevated 45 degrees, NPO4 point shcackle in place 2 [employer] guards at bedside.
--- NOTE | 2017-01-09 09:43 | NUR ---
MEDICATED WITH HALDOL 5MG IV, PT C/O INCREASED ANXIETY
--- NOTE | 2017-01-09 11:45 | NUR ---
PATIENT GOT UP TO THE RESTROOM, HE WAS FEELING AGGITATED AND ASK FOR MEDS TO CALM DOWN. NOTIFIED THE NURSE OF HIS REQUEST.
--- NOTE | 2017-01-09 12:16 | NUR ---
FIRST DOSE GASTROGRAPHIN 10CC FOLLOWED WITH A 10CC FLUSH PER NGT, PER DI INSTRUCTIONS. WILL REPEAT IN 1 HOUR
--- NOTE | 2017-01-09 13:18 | NUR ---
SECOND DOSE OF 10CC GASTROGRAPHIN FOLLOWED BY 10CC NS FLUSH GIVEN VIA ngt. NGT OFF SUCTION UNTIL CT OF ABD COMPLETED
--- NOTE | 2017-01-09 14:02 | NUR ---
PT IS RESTING IN BED WITH RESTRAINTS ON BOTH CORRECTIONAL OFFICERS IN THE ROOM
--- NOTE | 2017-01-09 14:22 | NUR ---
Pt down for CT scan. with 2 DI staff and 2 [employer] guards, cooperative. NGT intact, SL at this time
--- NOTE | 2017-01-09 15:10 | NUR ---
MEDICATED WITH TORADOL 30MG IV AND HALDOL 5MG IV ANXIETY. PT BACK FROM CT SCAN, NGT BACK TO IWS
--- NOTE | 2017-01-09 16:04 | NUR ---
[place] Pimentel EXPLAINED TO PT ABOUT SURGERY, PT SIGNED CONSENT, RISKS AND BENEFITS EXPLAINE DBY DR PIMENTEL. PT NPO, MOUTH CARE DONE, NGT PATENT, DRAINING THIN LIGHT BROWN DISCHARGE, ABD STILL UNABLE TO HEAR BOWEL TONES. MIDLINE INCISION CDI, SS IN PLACE, ABD BRUISING FROM SC MEDS. IV PATENT,ZOSYN INFUSING. NO C/O ADVERSE REACTION TO ABX STATED OR NOTED. O2 2L/NC ON AT THIS TIME, CONT PULSE OX IN PLACE STILL 90-94%, P STILL TACHY BETWEEN 112-136, R 18-26, HAS RECEIVED HALDOL SEVERAL TIMES WITH GOOD RESULTS PER ANXIETY AND LIGHT AGITATION. PT USES URINAL, VOIDING DARK MORE COLORED URINE. GETS UP W ONE ASSIST AND 2 [employer] GUARDS AT BEDSIDE. SCDS IN PLACE.
--- NOTE | 2017-01-09 16:19 | NUR ---
surgery here to get pt
--- NOTE | 2017-01-09 17:36 | NUR ---
PT IS STILL IN SURGERY
--- NOTE | 2017-01-09 20:52 | NUR ---
01/09/172051 Cecile Perez 2033 - PT ARRIVED TO PACU (IN CCU). OPA IN PLACE. PT NOT RESPONDING TO STIMULI AT THIS TIME. CCU RNS PRESENT X2, OFFICERS PRESENT X2. RN ONCOLOGY CLINICAL AT BEDSIDE
--- NOTE | 2017-01-09 23:32 | NUR ---
PT ARRIVED AT 2030, 8 LPM SIMPLE FACE MASK. VOCATIONAL NURSING INSTRUCTOR IN ROOM. RT ASSESSED PT. PT IS [employer] PT, 2 GUARDS IN PT'S ROOM, PT WRISTS SHACKLED TO WAIST RESTRAINT. 2 LPM NC INITIATED, VS WNL, NGT DRAINING GREEN, THIN, SLIGHTLY BROWN DRAINAGE. XRAY ARRIVED, PACU VERIFIED X2 VERBAL THAT SURGEON HAS REVIEWED XRAY AND PERMISSION GRANTED TO USE CENTRAL LINE. VERIFIED BY TELEPHONE CALL TO IMAGING. LUNGS CLEAR, BT INACTIVE, [place] DRAIN RLQ DRAINING - SEROSANGUINOUS DRAINAGE, CLEAR. FC DRAINING YELLOW, QUANTITY SUFFICIENT. PT ROUSES, ONE SENTENCE REPLIES REGARDING IS HE WARM ENOUGH, EXPERIENCING PAIN. SCD'S BILAT LE'S. HR 90-105. PERFUSION WNL, PULSES WNL. CL LINE 3 LUMEN BLOOD RETURN AND FLUSHES WNL.
--- NOTE | 2017-01-10 08:05 | NUR ---
PT IS RESTING SAFELY IN BED WITH RESTRAINTS ON AND EYES CLOSED, RESPERATION EVEN.
--- NOTE | 2017-01-10 08:19 | NUR ---
PT APPEARS TO BE SLEEPING AT THIS TIME, FLOEY CATHER BAG CHAGED AT THIS TIME TO MEASURE Q ONE HOUR. NG TO LIWS AND DRAINING GREEN IN COLOR. [place] DRAINING SS FLUID. URINE YELLOW IN COLOR
--- NOTE | 2017-01-10 09:10 | NUR ---
DR PIMENTEL NOTIFIED OF PT INCREASED B/P AND DECREASE IN URINE OUTPUT. NEW ORDER FOR B/P AND WE WILL WATCH THE URINE.
--- NOTE | 2017-01-10 09:54 | NUR ---
HYDRALAZINE 10MG GIVEN AT 0923 DUE TO ELEVATED B/P. B/P HAS DECREASED SOME TO 150/98 (109) HEART RATE REMAINS TACHY AT THIS TIME.
--- NOTE | 2017-01-10 10:41 | NUR ---
PT COMPLETE BED BATH AND CATHETER CARE COMPLETED THIS AM. PT COOPERATIVE WITH THIS PROCESS. BELLY CHAINS LEAVING GILMAN ON PTS SKIN THERFORE A TOWEL WAS PLACED BETWEEN THE CHAINS AND THE PT SKINS. ALSO THE PAD LOCKED MOVED SO THAT THE PT WOULD NOT BE LYING ON IT. COMPLETE LINE CHANGED AND PT MEDICATED FOR PAIN 0.5 DILAUDID IVP GIVEN AT THIS TIME. PT CONTIOUES TO LEAVE HIS EYES CLOSED, BUT DOES ANSWER STAFF QUESTIONS.
--- NOTE | 2017-01-10 12:10 | NUR ---
PT IS RESTING IN BED WITH EYES CLOSED, RESPERATIONS EVEN
--- NOTE | 2017-01-10 12:34 | NUR ---
PT SLEEPING DID NOT WANT TO WAKE HIM. GUARDS EVER WATCHFUL, TOLD ME THEY WOULD TELL HIM I WAS BY. WILL CONTINUE TO FOLLOW
--- NOTE | 2017-01-10 13:23 | NUR ---
PT MEDICATED FOR PAIN 10/10 AT THIS TIME. PT IS COOPERATIVE WITH STAFF AND HE HAD [employer] STAFF CALLED FOR STAFF.
--- NOTE | 2017-01-10 14:42 | NUR ---
PT MORE AWAKE THIS AFTERNOON WITH INCREASED PAIN, DR PIMENTEL INTO SEE PT AT THIS TIME NEW ORDERS RECEIVED AT THIS TIME. NG REMAINS TO LIWS AND SCD'S INPLACE,
--- NOTE | 2017-01-10 16:10 | NUR ---
PT IS IN BED RESTING SAFELY WITH RESTRAINTS ON AND EYES CLOSED, RESPERATIONS EVEN.
--- NOTE | 2017-01-10 17:44 | NUR ---
PT UP TO THE SIDE OF THE BED AND DANGLED FOR A FEW MINUTED THEN HE STOOD UP AT THE SIDE WITH STAFF HELPS. HE USED THE IS AND WAS UP TO 1500 X 3 AT THIS TIME. OXYGEN OFF ALSO AT THIS TIME. PT BACK TO BED BY TAKING THREE TO FOUR STEPS UP TOWARDS THE TOP OF THE BED AND THEN SAT DOWN AND TWO PERSON ASSISTANCE BACK TO BED. SCD INPLACE, NG TO LIWS, LIPIDS AND TPH INFUSING ORDERED, PRIMARY FLUIDS DC'D ALSO AT THIS TIME, CENTRAL ERNESTO WHIT PORT FLUSHED AND RETURNED BLOOD AND THEN RE FLUSHED AND CLAMPED OFF. THE OTHER TWO PORTS HAVE FLUIDS INFUSING AT THIS TIME. PT WAS COOPERATIVE WITH WHOLE PROCESS AND FOLLOWED DIRECTIONS. [employer] OFFICE HELPED AND STAYED CLOSE TO ASSIST NEEDED. [employer] RESTRAINTS REMAIN IN PLACE AND HAVE TOWELS HAVE BEEN WRAPED ON THE BACK CHAINS TO HELP DECREASE SKIN ISSUES. PT MEDICATED WITH 1MG DILAUDID IVP ALSO AFTER GETTING BACK TO BED FOR CRAMPING PAIN IN ABD. RE ENFORCED THAT ID HE IS PASSING GAS OR FEELS LIKE HE HAS AIR IN HIS STOMACH THAT PAIN MEDICATIONS DOES NOT HELP WITH THIS. PT UNDERSTOOD. PT ALSO C/O HAVING SOMTHING INHIS EYE, WASHED OUT AND WIPED OFF AND THIS SEAMED TO HELP.
--- NOTE | 2017-01-10 18:35 | NUR ---
PT APPEARS TO BE COMFORTABLE AT THIS TIME, DENIES PAIN AT THIS TIME.
--- NOTE | 2017-01-10 20:30 | NUR ---
PAIN GOAL OF 3/10, DILAUDID IVP 1 MG ADMINISTERED, PAIN DECREASED TO 4-5/10, PT IS SATISFIES AT THIS TIME.
--- NOTE | 2017-01-10 23:29 | NUR ---
LEXAPRO CRUSHED AND ADMINISTERED BY NGT, NGT CLAMPED FOR 1.[address] PIMENTEL, PO MEDS THAT CAN BE CRUSHED AND ADMINISTERED BY NGT CAN BE GIVEN. HYDRALAZINE 10 MG IVP X1 FOR SYSTOLIC BP>180. DILAUDID 1 MG IVP FOR PAIN. PT DEBORA, A/O TO SELF, , HOSPITAL IN [place], MAKES NEEDS KNOWN.
--- NOTE | 2017-01-11 02:30 | NUR ---
PT CHECKED ON Q 2 HRS AND MORE FREQUENTLY NEEDED. DROWSY, SLEEPS, WAKES, ANSWERS QUESTIONS APPROPRIATELY, MAKES NEEDS KNOWN, UE AND LE PULSE AND CIRCULATION WNL, CHECKED FREQUENTLY, REPOSITIONED REGULARLY, [employer] RESTRAINTS, GUARDS IN ROOM AT ALL TIMES. PAIN 8/10 DECREASED TO 6/10 WITH IVP DILAUDID AND TORADOL. RLQ PAIN EXACERBATED WITH REPOSITIONING. PT VERBALIZES THE ABILITY TO SLEEP AND DOES NOT WANT ADDITIONAL PAIN MEDICATION AT THIS TIME. NGT IN PLACE, TPN, LIPIDS INFUSING, ZOSYN IV PER PHYSICIAN'S ORDER. BP SYSTOLIC 140-150'S - PER CONVERSATION WITH DR PIMENTEL HYDRALAZINE AVAILABLE FOR SYSTOLIC > 180. FC OUTPUT WNL, SCD'S PER PRE OP NOTATION ORDER, REMOVED INTERMITTENTLY PER PROTOCOL.
--- NOTE | 2017-01-11 08:14 | NUR ---
PT RESTING IN BED WITH CORRECTIONAL OFFICERS IN ROOM. DIALUDID GIVEN 1MG IV BY ARELIS ROY. NOW RATING PAIN 6/10 IN ABDOMEN. MORNING ASSESMENT COMPLETE.
--- NOTE | 2017-01-11 09:21 | NUR ---
pt complained of pain 8/10 in abdomen. gave 1mg dilaudid iv.
--- NOTE | 2017-01-11 09:51 | NUR ---
PT UP AND AMBULATING IN HALLWAY. KINJAL MORALES CHANGED AT THIS TIME. PT NOW UP IN CHAIR. CORRECTIONAL OFFICERS IN ROOM.
--- NOTE | 2017-01-11 10:12 | NUR ---
PT TRANSFERED FROM CHAIR BACK TO BED. REQUESTING MORE PAIN MEDICATION AFTER TRANSFER.
--- NOTE | 2017-01-11 10:32 | NUR ---
gave pt 1mg dilaudid iv.
--- NOTE | 2017-01-11 11:16 | NUR ---
PT RESTING IN BED WITH EYE'S CLOSED. RESPIRATIONS EVEN AND UNLABORED. CALL LIGHT WITHIN REACH. CORRECTIONAL OFFICERS IN ROOM.
--- NOTE | 2017-01-11 12:16 | NUR ---
PT RESTING IN BED WITH EYE'S CLOSED. ASKED PT WHAT PAIN LEVEL WAS. CONTINUES TO RATE PAIN 8/10. APPEARS TO BE IN NO DISTRESS AT THIS TIME.
--- NOTE | 2017-01-11 12:35 | NUR ---
PT UP TO BATHROOM TO DO AM CARES. WASH FACE AND BRUSH TEETH. GUARDS AT SIDE
--- NOTE | 2017-01-11 12:49 | NUR ---
pt complained of abdominal pain 01/09. gave 1mg dilaudid iv.
--- NOTE | 2017-01-11 14:35 | NUR ---
PT RESTING IN BED WITH EYE'S CLOSED. RESPIRATIONS EVEN AND UNLABORED. CALL LIGHT WITHIN REACH. VISIBLE FROM NURSES STATION.
--- NOTE | 2017-01-11 17:04 | NUR ---
PATIENT TO FLOOR FROM CCU VIA BED. ASSESSMENT DONE. CENTRAL LINE ON THE LEFT UPPER CHEST PATENT AND ALL 3 PORTS HAVE GOOD BLOOD RETURN. MIDLINE INCISION COVER WITH MEPILEX D/I/C. [place] DRAIN ON THE RIGH LOWER QUADRANT AND DRAINING MODERATE AMOUNT OF SEROSANGUINOUS FLUID. HARGROVE IN PLACE AND DRAINING WELL. RESTRAINT IN PLACE AND GUARDS IN ROOM AT ALL TIME. TPN INFUSING WELL.
--- NOTE | 2017-01-11 17:59 | NUR ---
PATIENT CALLED AND REQUEST PAIN MED FOR 01/09 ABD PAIN. PATIENT WAS MEDICATED. RESTING IN BED AT THIS TIME. NG TUBE IN PLACE. IV FLUID INFUSING. NO APPARENT DISTRESS NOTED.
--- NOTE | 2017-01-11 18:07 | NUR ---
PTIS RESTING IN BED WITH RESTRAINTS ON AND EYES CLOSED , RESPERATIONS ARE EVEN. PT DID NOT GET A CLEAR LIQUID TRAY, WILL LOOK INTO THIS. PT DID NOT NEED ANYTHING ELSE
--- NOTE | 2017-01-11 18:41 | NUR ---
PATIENT TRANSFER FROM CCU THIS PM. HAD DONE WELL. NG TUBE IN PLACE ON L/I/S. CENTRALE LINE IN PLACE AND TNP INFUSING WELL. ALL 3 PORTS ARE PATENT WITH GOOD BLOOD RETURN. MIDLINE INCISION D/C/I. CHINA DRAIN WNL. HARGROVE IN PLACE AND FUNCTION WELL. HYPOACTIVE BOWEL TONES. TRACE EDEMA ON THE LOWER EXTREMITIES. PAIN CONTROL WITH DILAUDID. PATIENT IS APPROPRIATE. RESTRAINTS IN PLACE ([facility]). GUARDS IN ROOM AT ALL TIME.
--- NOTE | 2017-01-11 20:30 | NUR ---
PT IN BED, PLEASANT AND COOPERATIVE. REQUESTED AND RECEIVED PRN PAIN MED. ASSESSMENT COMPLETED. ANKLE AND WRISTS ARE RESTRAINED, SKIN ON BOTH ARE FREE FROM BREAKDOWN. HYPOACTIVE BOWEL SOUNDS. IV PATENT. DENIES NAUSEA, REQUESTED AND RECEIVED ICE CHIPS. NG TUBE PATENT, ASKED PT IF HE KNOWS WHY THE TUBE IS PRESENT, HE NODDED HIS HEAD YES.
--- NOTE | 2017-01-11 22:00 | NUR ---
CONTACTED DR. PIMENTEL AT 2144 REGARDING THE DILUADID ORDER, IT WAS UNCLEAR OF THE AMOUNT OF TIME THE "NTE" ORDER WAS. RECEIVED NEW ORDERS FOR DILUADID, AND PERCOCET. PT WALKED MULT TRIPS AROUND THE FLOOR, WITH 2 GUARDS, PT PUSHING HIS IV POLE. HARGROVE PATENT WITH MORE URINE.
--- NOTE | 2017-01-11 22:20 | NUR ---
MEDICATED WITH PRN DILUADID. PT BACK TO BED AFTER AMBULATING. PLEASANT AND COOPERATIVE.
--- NOTE | 2017-01-12 00:30 | NUR ---
PT REQUESTED PAIN MED, WHEN RN INTO ROOM, PT WAS WITH EYES CLOSED, DIDN'T OPEN EYES WITH NOISE. AFTER COUPLE MIN HE OPENED HIS EYES, STATED HE HAD BEEN SLEEPING. MEDICATED WITH THE PERCOCET PER NG TUBE. NG SUCTION OFF WILL TURN BACK ON AFTER 30 MIN. NEW [facility] GUARDS PRESENT AT BEDSIDE. ASKED PT IF HE HAS BEEN ABLE TO SLEEP, HE STATED YES.
--- NOTE | 2017-01-12 00:51 | NUR ---
ASSESSMENT COMPLETED, PT IN BED, PLANNING TO WALK SOON. GUARDS PRESENT, WRIST AND ANKLE RESTRAINTS ARE INTACT, WRIST/ANKLE AREAS FREE FROM SKIN BREAKDOWN. PT COOPERATIVE AND PLEASANT.
--- NOTE | 2017-01-12 02:00 | NUR ---
BLOOD SUGAR 146. PT MOSTLY SLEEPY. NG TO INTERMITTENT SUCTION
--- NOTE | 2017-01-12 03:51 | NUR ---
MEDICATED WITH ONE PERCOCET, PER NG TUBE. PT EXPRESSED HIS CONCERN ABOUT NOT HAVING THE DILAUDID, BUT UNDERSTOOD THE ATTEMPTS TO TRY THE PO VS IV.
--- NOTE | 2017-01-12 06:00 | NUR ---
PT WOKE WHEN RN ADMINISTER MEDS. ASKED IF HE WAS GOING HOME TODAY. TOLD PT THAT THIS NURSE WASN'T AWARE HE WAS, BUT THAT DR WOULD BE IN LATER THIS AM.
--- NOTE | 2017-01-12 06:39 | NUR ---
PT SLEPT MOST OF THE NIGHT. MEDICATED WITH BOTH DILUADID AND PERCOCET. NG TUBE WITH TOTAL OF 600 OUT, CHINA 70 OUT. PT AMBULATED MULT LAPS AROUND THE FLOOR. HARGROVE PATENT. PT APPROPRIATE, COOPERATIVE AND PLEASANT. CENTERAL LINE PATENT WITH TPN INFUSING.
--- NOTE | 2017-01-12 07:33 | NUR ---
BEDSIDE REPORT RECEIVED FROM KIRILL CHAKRABORTY. ASSUMING PATIENT CARE AT THIS TIME. PATIENT UP TO BATH TO DUE MORNING CARE. GUARDS IN ROOM .
--- NOTE | 2017-01-12 08:21 | NUR ---
PATIENT CALLED AND REPORTED THAT THE NG TUBE FELL OFF. GUARDS REPORTED THAT PATIENT PULLED THE TUBE OUT. PATIENT WAS VERY ANXIOUS AND CONCERN THAT TUBE HAS TO PUT BACK IN. REASSURED PATIENT THAT THE TUBE MAY NOT TO GO BACK IN, THAT I NEED TO NOTIFIED DR PIMENTEL. GUARDS ASKING PATIENT TO GET BACK IN BED TO BE RESTRAINED. PATIENT REFUSED. GUARDS VERBALIZED THAT IF PATIENT REFUSE TO GO BACK TO BED THEY WILL HAVE TO TAKE HIM BACK TO ALF. GUARDS ASKED THIS RN TO DISCONNECT EVERYTHING IN ORDER TO TAKE PATIENT BACK. LOUIS WAS TOLD THAT DR PIMENTEL NEED TO BE NOTIFIED. DR PIMENTEL WAS CALLED REGARDING THE SITUATION. 5MG OF HALDOL ORDERED. SAID THAT PATIENT CANNOT GO BACK TO ALF DUE TO HIS PRESENT HEALTH CONDITION. GUARDS AND PATIENT WERE INFORMED ABOUT WHAT THE DR HAD SAID. HALDOL WAS ADMINISTERED. PATIENT WAS QUIET AND COOPERATE. SNIPPER HANSA WAS IN ROOM TO TALK TO PATIENT AND GUARDS. PATIENT RESTING IN BED AT THIS TIME.
--- NOTE | 2017-01-12 10:15 | NUR ---
SHIFT ASSESSMENT COMPLETE. PATIENT APPEARS TO BE CALM AT THIS MOMENT. MIDLINE INCISION COVERED WITH MEPILEX D/C/I. CHINA DRAIN WNL. ABD LESS DISTENDED. BOWEL TONES STILL HYPOACTIVE. LEFT SUBCLAVIAN CENTRAL LINE WNL, TPN IS INFUISNG WELL WELL ABX. HARGROVE IN PLACE, AND DRAINING WELL. TRACE OF EDEMA NOTED IN THE LOWER EXTREMITIES. RESTRAINTS IN PLACE ([facility] PATIENT), GAURDS IN ROOM AT ALL TIME.
--- NOTE | 2017-01-12 11:22 | NUR ---
DR LOREN WATTS IN ROOM TO EVALUATE PATIENT. PATIENT OPEN EYE TO VOICE. REPORTED PAIN WHEN THE DR PALPATE ABD. FLUID INFUSING. PATIENT RESTING IN BED APPEARS TO BE SLEEPING RR EVEN/UNLABORED.
--- NOTE | 2017-01-12 11:31 | OR ---
[facility] [address] [place], [place] [address] Signed DATE OF SERVICE: 01/09/2017 PREOPERATIVE DIAGNOSES: Sepsis. Recent ileocolectomy for Crohn's fistulizing and obstructive disease. POSTOPERATIVE DIAGNOSES: Intraabdominal abscess secondary to enteric leak and ischemia of ileal segment at anastomosis. PROCEDURE: Exploration of abdomen with drainage of intraabdominal abscess and placement of drain. Ileocolectomy with [id number] ileocolostomy prolonged, complicated, and difficult. Placement of left subclavian central venous catheter. SURGEON: Robbin Pimentel MD. PRODUCTION GRAPHIC DESIGNER: Jarek Barnett RN. INDICATION: This 26-year-old white man is a prisoner at the [facility] and a patient of Dr. Grady Amaro. He has known Crohn's disease and had anaphylaxis related to Remicade and Humira treatment in the past. He has been maintained primarily with Delzicol. A few weeks ago, he underwent drainage and placement of a semi-permanent Seton for a recurring perianal abscess. Nearly 2 weeks ago, he was admitted to the hospital with small bowel obstruction and a CT scan finding, which showed a dense inflammatory process at the ileocecal valve tethering other bowel loops including the rectosigmoid causing a relative large bowel and small bowel obstruction. Mindful of his well-known diagnosis of Crohn's disease and without prior intraabdominal operati o ns, he was treated with steroids, which markedly improved his symptoms. He returned to the [facility], but within 48 hours, he returned with increasing distention and so on. He was most recently admitted on 01/03/2017. Having failed a medical approach to his problem, he underwent laparoscopy and subsequent conversion to low midline laparotomy on January 05, 2017, showing a dense inflammatory mass of Crohn's disease at the ileum and ileocecal area with fistulizing component of the ileum to the sigmoid causing relative obstruction of the rectosigmoid. Resection of the ileocolic segment with site and ileocolostomy was undertaken as well as revision of the fistulous portion to the rectosigmoid. He initially did remarkably well. His stress-dose steroid of hydrocortis one 100 mg IV q.8h. was maintained. Within 24 hours, he was feeling much better and began liquid diet, Electronically Signed By: ROBBIN PIMENTEL MD 01/12/17 1131 PATIENT NAME: ADRIENNE CANALES OPERATIVE REPORT DATE OF : 89 PHYSICIAN: ROBBIN PIMENTEL MD REPORT #: [id number] REPORT IS CONFIDENTIAL AND NOT TO BE RELEASED WITHOUT AUTHORIZATION [facility] [address] [place], [place] [address] Signed which he advanced ultimately to a full diet. Yesterday, he began having abdominal pain and spiked a temperature to 102 and a white count was noted to be 16,000. He has had no abdominal tenderness with his examination, however. Plain x-rays did not show bowel obstruction, particularly nor sign of free air necessarily. His abdominal pain was managed with parental pain medication and intravenous fluids were administered. By this morning, he had an elevated white count to 31,900 and temperature spike in the night to 101.6. Still his exam was surprisingly benign (mindful that he is on intravenous steroids postoperatively). On that basis, a CT scan was obtained, which showed intraabdominal free air (not a typical for 4 days postoperatively), but also fluid and air pockets in the region of the ileocolostomy. On the possibility this may represent enteric leakage or other problem, I have recommended the exploration of the abdomen and other indicated procedures. He understands the risks of bleeding, infection, need for ileostomy, need for additional bowel resection, and need for other indicated procedures and wished to proceed. FINDINGS: There was an abscess associated with the ileocolic area. This was drained. Enteric fluid was noted from the end portion of the ileum, which had been stapled and oversewn, all related to a distinctly ischemic segment of ileum involved in the ileocolonic anastomosis. There was some leakage at the anastomosis itself, not from insecurity of the sutures, but rather simply ischemic necrosis of the ileum. There is no sign of torsion or anything to account for the segmental ischemia. Drainage of the abscess was accomplished, mobilization of the right colon and mobilization of the small bowel and peritoneal lavage of the abdominal cavity. Resection of the ischemic segment of ileum and portion of right colon was undertaken allowing for a very viable [id number] ileocolostomy once again. A central line was also placed as his peripheral access was considered marginal according to the agronomy internship. An Arrow blue tip triple-lumen catheter was placed in the left subclavian vein without problem showing good function and a postprocedure chest x-ray showed good position as well. There is no evidence of complications. PROCEDURE IN DETAIL: The patient was brought to the operating room. A nasogastric tube was in place. He was given a general endotracheal anesthetic. Zosyn antibiotic had been given already. Sequential compression device stockings were used and stress-dose steroids, hydrocortisone 100 mg IV had been given. After satisfactory general endotracheal anesthesia and with nasogastric tube in place, a Gonzalez catheter was placed without problem. The abdomen was clipped and prepared with a chlorhexidine solution and draped sterilely. The previous low midline incision was healing quite well without evidence of inflammation or other problem. Incision was made in the same area. Midline fascia was Electronically Signed By: ROBBIN PIMENTEL MD 01/12/17 1131 PATIENT NAME: ADRIENNE CANALES OPERATIVE REPORT DATE OF : [birth year] PHYSICIAN: ROBBIN PIMENTEL MD REPORT #: [id number] REPORT IS CONFIDENTIAL AND NOT TO BE RELEASED WITHOUT AUTHORIZATION [facility] [address] [place], [place] [address] Signed opened after r e moving the PDS suture. Within the peritoneal cavity, there was some turbid fluid. Gentle retraction of the abdominal wall showed there to be a thick muscular wall and some edema as might be expected. On that basis, the incision was extended cephalad a bit. This included just above the umbilicus. Manipulation of the abdominal contents ultimately showed an inflammatory area of the ileocolonic area. There was distinct ischemia of the ileal segment involved in the anastomosis. Breakdown of some loculations showed purulence. Gram stain and cultures were obtained. The abscess cavity was near the end of the ileal segment, which had been stapled and oversewn, but it was clearly the source of the problem. There is another small leak at the anastomosis in the proximal portion of the ileum. The small bowel was packed to the left side of the abdomen after irrigation and aspiration of inflammatory abscess-type fluid. The leakage from the ischemic segment of ilium was profound enough the ANALILIA stapling device was used to secure it. The wound was then isolated with laparotomy packs and irrigation undertaken more fully in the pelvis. The area of fistula division from the ileo sigmoid colonic area was completely viable without sign of leakage or other problem. The small bowel was packed to the left side of the abdomen. It appeared that the small bowel up to the distinctly ischemic segment was completely viable. There was no involvement of Crohn's disease either. It was deemed most appropriate to resect the ileocolonic segment and provide for another an astomosis with more reliably viable bowel. The right colon was mobilized from the right abdominal wall attachments with blunt and electrocautery dissection; edema in the retroperitoneum was noted. The gallbladder was slightly distended, but not particularly inflamed. Liver was normal. Once the ileocolonic segment was mobilized to the midline, photographs were fully taken. An area of demarcation of ischemia of the ileum was quite clear, the mesenteric area to this area was incised with electrocautery and using hemostats, the vascular supply secured. Similarly, a portion of cecum was similarly secured in its mesenteric side securing the vascular pedicles with 2-0 silk ties doubly applied. The ANALILIA stapling device was used to transect the right colon as well as the ileum and passing the specimen off the table. The colon was completely viable as was the ileum. A [id number]-[id number] ileocolostomy was deemed most appropriate. The staple lines at the end of the ileum and the colon were oversewn with interrupted 3-0 s ilk suture to minimize chances of fistulization in the future. A [id number] ileo- right colostomy was undertaken allowing for an elongated Electronically Signed By: ROBBIN PIMENTEL MD 01/12/17 1131 PATIENT NAME: ADRIENNE CANALES OPERATIVE REPORT DATE OF : 89 PHYSICIAN: ROBBIN PIMENTEL MD REPORT #: [id number] REPORT IS CONFIDENTIAL AND NOT TO BE RELEASED WITHOUT AUTHORIZATION [address] [address] Signed anastomosis. This was accomplished in 2-layer technique of interrupted 3-0 silk sutures in the seromuscular layer and interrupted 3-0 Vicryl in the mucosal layer. Care was taken to avoid enteric spillage upon opening the bowel segments. At conclusion, the bowel segments and anastomosis were impressively viable. The mesenteric defect was secured with interrupted 2-0 silk sutures. Isolating laparotomy packs, gloves used in the anastomosis, and all instruments were then changed out and copious irrigation undertaken the abdominal contents. The small bowel was fully examined showing no evidence of ischemic areas elsewhere nor sign of stricture or active inflammatory bowel disease. The rectosigmoid and sigmoid appeared to be normal. Pelvic fluid was suctioned free. Once the pelvic contents were entirely free of any contaminated fluid grossly, the right lower abdominal incis ion was made and a 7-mm flat Rehan drain placed into the retrocecal area and into the pelvis. This secured the skin with nylon suture. It was attached to bulb suction later. The small bowel was returned to its normal anatomic configuration. The transverse colon and omentum, which had been elevated, were placed over the abdominal contents. Plans were then made for closure. The midline fascia was reapproximated with a running bidirectional #1 PDS suture. The subcutaneous tissue copiously irrigated and skin closed in subcuticular 3-0 Vicryl. Steri-Strips were applied as was a Mepilex silver sponge dressing. Plans were then made for a central line. The patient has poor peripheral access. Marginal cooperation on some days and on that basis, the central line was deemed appropriate. The left infraclavicular space was prepared with a chlorhexidine solution and draped sterilely. 1% lidocaine injected for postoperative analgesic effect. Using a Seldinger technique, the left subclavian vein was accessed showing dark nonpulsatile blood. A flexible J-wire was passed down the needle, and the needle was removed. A bit of ectopy was noted confirming its position in the right heart. The site was dilated with an 11 blade and the blue dilator in the previously inspected and irrigated Arrow blue tip triple-lumen catheter passed over the wire. The wire was removed and aspiration on the distal port showed dark nonpulsatile blood. The catheter was secured to the skin with nylon suture carefully and anti-infective disc as well as an OpSite-type dressing. He was ultimately extubated and transferred to the recovery in good condition. Blood loss was less than 100 mL and adequate. Sponge, needle, and instruments counts reported as correct x3. The operation was prolonged, complicated, and difficult as might be imagined lasting over 3-1/2 hours. Electronically Signed By: ROBBIN PIMENTEL MD 01/12/17 1131 PATIENT NAME: ADRIENNE CANALES OPERATIVE REPORT DATE OF : 89 PHYSICIAN: ROBBIN PIMENTEL MD REPORT #: [id number] REPORT IS CONFIDENTIAL AND NOT TO BE RELEASED WITHOUT AUTHORIZATION [address] [address] Signed MD ROMERO Cooper/Jarred /[id number] cc: Grady Amaro MD Electronically Signed By: ROBBIN PIMENTEL MD 01/12/17 1131 PATIENT NAME: ADRIENNE CANALES OPERATIVE REPORT DATE OF : 89 PHYSICIAN: ROBBIN PIMENTEL MD REPORT #: [id number] REPORT IS CONFIDENTIAL AND NOT TO BE RELEASED WITHOUT AUTHORIZATION
--- NOTE | 2017-01-12 13:14 | NUR ---
PATIENT RESTING IN BED REPORTED 7/10 ABD PAIN. REQUESTED HALDOL. PATIENT WAS MEDICATED. IV SITE PATENT AND CLEAN, TPN INFUSING WELL. GUARDS IN ROOM. NO APPARENT DISTRESS NOTED. WILL CONTINUE TO MONITOR.
--- NOTE | 2017-01-12 16:15 | NUR ---
PATIENT RESTING IN BED, REPORTS 6/10 PAIN ABD PAIN. PATIENT ALSO REQUESTS HALDOL. PATIENT WAS MEDICATED. PATIENT REPORTS LESS ABD DISCOMFORT, REPORTS THAT HE HAS PASSED FLATUS AND HAD 3BMs. ONE BM WITTNESS BY LINE DANCER. POSITIVE BOWEL TONES. PATIENT WALKED TO THE HALLWAY TWICE AND TOLERATED WELL.
--- NOTE | 2017-01-12 18:02 | NUR ---
CALLED MADE TO [facility] NURSING STAFF TO GIVE UPDATE ON PATIENT'S CONDITION.
--- NOTE | 2017-01-12 18:26 | NUR ---
PATIENT HAD A FAIR DAY. NG TUBE OUT. PATIENT HAD 3 BMs AND REPORTS THAT HE HAD PASSED FLATUS. LEFT SUBCLAVIAN CENTRAL LINE PATENT, BLOOD RETURN IN ALL 3 PORTS. TNP AND ABX INFUSING. MIDLINE INCISION WNL. CHINA DRAIN FUNCTION WELL WITH MODERATE DRAINAGE. HARGROVE IN PLACE AND DRAINING WELL. PATIENT ADVANCED TO FULL LIQUID DIET. TOLERATED WELL. PAIN CONTROL WITH PO PERCOCET. ALL RESTRAINT IN PLACE ([facility]), SKIN INTACT. POSITIVE BOWEL TONES.
--- NOTE | 2017-01-12 21:50 | NUR ---
PT RESTING IN BED, 2 [facility] OFFICERS AT BEDSIDE. PT ASSESSMENT COMPLETE. PT STATES PAIN IS "OKAY", PT REQUESTING "ANXIETY MEDICATION", DENIED NEED FOR PAIN MEDICATION, HALDOL GIVEN. IV FLUIDS INFUSING THROUGH CENTRAL LINE WITHOUT DIFFICULTY. PT ON ROOM AIR, DENIES ANY SOB. PT DENIES ANY N/V. DRESSING TO ABDOMEN IS C/D/I. CHINA DRAINING MODERATE AMOUNT SEROSANGUINOUS FLUID. HARGROVE DRAINING CLEAR YELLOW URINE. CALL LIGHT WITHIN REACH. PT DENIES ANY FURTHER NEEDS AT THIS TIME.
--- NOTE | 2017-01-12 23:04 | NUR ---
PT C/O ANXIETY, SITTING ON EDGE OF BED. HALDOL GIVEN. PT UP AMBULATING IN ROOM INDEPENDENTLY. CHANGED BEDDING PER PT REQUEST. PT NOW BACK IN BED RESTING COMFORTABLY. 2 OFFICERS CONTINUE TO BE AT BEDSIDE. PT IN [facility] RESTRAINTS. CALL LIGHT WITHIN REACH. PT DENIES ANY FURTHER NEEDS AT THIS TIME.
--- NOTE | 2017-01-12 23:25 | NUR ---
PT C/O ANXIETY AND HEARTBURN, PT GETTING MORE AND MORE AGITATED. HALDOL GIVEN. CALLED DR PIMENTEL REGARDING HEARTBURN, NEW ORDERS RECEIVED. [facility] OFFICER CAME TO NURSES STATION TO INFORM STAFF THAT PT REQUESTING TO LEAVE FACILITY AND REFUSE ANY MORE MEDICAL TREATMENT. WENT AND TALKED WITH PT, GAVE MORE HALDOL AND DOSE MAALOX. PT CONTINUES TO BE AGITATED. PT ASKING IF HE IS ALLOWED TO REFUSE TREATMENT, ADVISED AGAINST IT. DISCUSSED WITH PT WAYS TO MAKE PT MORE COMFORTABLE, PT STATES HE IS "TIRED OF LAYING IN BED WITH RESTRAINTS", PT AGREED TO WALK THE HALLS FOR COMFORT. PT NOW AMBULATING HALLS WITH BOTH [facility] OFFICERS. APPEARS MORE CALM AND COMFORTABLE AT THIS TIME.
--- NOTE | 2017-01-13 00:31 | NUR ---
PT NOW SLEEPING, RR EVEN AND UNLABORED. PT SNORING. OFFICERS CHANGED SHIFTS, 2 NEW OFFICERS NOW AT BEDSIDE. IV FLUIDS INFUSING WITHOUT DIFFICULTY. CHINA EMPTIED, MODERATE AMOUNT SEROSANGUINOUS FLUID. PT APPEARS COMFORTABLE AT THIS TIME. CALL LIGHT WITHIN REACH. OFFICERS DENY ANY NEEDS AT THIS TIME.
--- NOTE | 2017-01-13 02:55 | NUR ---
PT CONTINUES TO BE SLEEPING. WOKE EASILY FOR BLOOD GLUCOSE CHECK, THEN EASILY FELL BACK TO SLEEP. OFFICERS AT BEDSIDE. IV FLUIDS INFUSING WITHOUT DIFFICULTY. PT APPEARS COMFORTABLE. CALL LIGHT WITHIN REACH.
--- NOTE | 2017-01-13 04:46 | NUR ---
PT SLEEPING, RR EVEN AND UNLABORED. PT APPEARS COMFORTABLE AT THIS TIME. OFFICERS AT BEDSIDE. CALL LIGHT WITHIN REACH.
--- NOTE | 2017-01-13 05:15 | NUR ---
PT SLEPT MOST OF SHIFT. PT STARTED SHIFT BEING AGITATED, HALDOL GIVEN x4 DOSES. PT RECEIVED PERCOCET x1 FOR ABDOMINAL PAIN. TPN/ABX INFUSING THROUGH CENTRAL LINE WITHOUT DIFFICULTY. PT HAS HARGROVE, VOIDING WELL. MIDLINE INCISION HAS MEPILEX DRESSING C/D/I. CHINA DRAINING MODERATE AMOUNT SEROSANGUINOUS FLUID. 2 [facility] OFFICERS AT BEDSIDE. PT ON FULL LIQUID DIET, TOLERATING WELL. INDEPENDENT IN ROOM.
--- NOTE | 2017-01-13 08:34 | NUR ---
PT C/O 8 PAIN, GAVE PERCOCET 5/325 MG 1 TAB PO PRN. PT ATE 75% OF FULL LIQUID DIET, DENIES NAUSEA. BOWEL TONES ACTIVE X 4 QUADRANTS, PT REPORTS HAVING LOOSE BM THIS AM AFTER BREAKFAST. ENCOURAGED PT TO GET UP OUT OF BED, AMBULATE. PT WAS UP TO CHAIR FOR BREAKFAST.
--- NOTE | 2017-01-13 09:48 | NUR ---
HARGROVE CATHETER D/C'D. TPN RATE REDUCED TO HALF PREVIOUS RATE. PT EDUCATED REGARDING ADVANCE OF DIET TO REGULAR.
--- NOTE | 2017-01-13 09:51 | NUR ---
PT UP, AMBULATING IN HALLS WITH 2 GAURDS AT SIDE. PT TOLERATING WELL.
--- NOTE | 2017-01-13 12:16 | NUR ---
PT TOLERATED REGULAR DIET LUNCH, ATE GRILLED CHEESE SANDWICH, APPLESAUCE, DRANK MILK, TOLERATED WELL. DENIES NAUSEA. NOW WALKING IN HALLS.
[2017-01-13] MEDS ORDERED: CIPROFLOXACIN500 MG PO (15:24)
[2017-01-13] MEDS ORDERED: METRONIDAZOLE250 MG PO (15:24)
[2017-01-13] MEDS ORDERED: PANTOPRAZOLE SO40 MG PO (15:27)
[2017-01-13] MEDS ORDERED: OXYCODON-ACETA1 EAC2 PO (15:27)
--- NOTE | 2017-01-17 15:03 | DS ---
[facility] [address], [place] [address] Signed DATE OF DISCHARGE: REASON FOR ADMISSION This 26-year-old white man is recently discharged from the hospital on December 31, having been hospitalized for several days with a bowel obstruction, consider related to well-established Crohn's disease in the region of the ileocecal valve. At that time, a confluence of inflammatory changes of the right lower abdomen, not specifically the terminal ilium, but the cecal area and ilium showed an obstructive pattern with tethering of the sigmoid colon. He had concurrent small bowel and large bowel incomplete obstruction. Mindful of his underlying Crohn's disease diagnosis and without prior history of intraabdominal operation, but with complete intolerance (anaphylaxis) to Remicade and Humira), he underwent steroid therapy with Hydrocortisone converting to Prednisone. This did allow for marked improvement of his symptoms and a CT scan confirmed that the obstructive pattern had markedly improved. He was discharged to the assisted with a plan for tapering of his steroids and resumption of Mesalamine, which he had been taking all along. He was sent back to the emergency room with abdominal distention, bloating, and vomiting and evaluation in the emergency room showed him likely to have recurrent obstructive symptoms. The patient was intolerant of attempted nasogastric tube placement, was admitted once again to my service for further evaluation and care. PERTINENT PHYSICAL EXAMINATION GENERAL: A tall w elida man who is shaved bald. He does not look systemically toxic at the time of admission. NECK: Trachea is midline. He had no crepitus. CHEST: Clear. HEART: Regular without murmur. ABDOMEN: Somewhat obese but soft. Easily palpated. There was no mass ascites or actual tenderness. LABORATORY DATA His lab studies showed a white count of 11.7. HOSPITAL COURSE With a considerable amount of effort, on both my part and the patient's part, a nasogastric tube was placed due to his obstructive symptoms. This was a c hallenge as he was psychologically extremely resistant to it. With gentle technique, however, it was placed and did allow for decompression of the stomach. The CT scan that was repeated showed a segment of bowel with a distinct area of stricture. It was c l ear that he failed a reasonable trial of steroid therapy to open up the obstruction in the inflammatory process and would likely need operative intervention. Consideration was Electronically Signed By: ROBBNI PIMENTEL MD 01/17/17 1503 PATIENT NAME: ADRIENNE CANALES DISCHARGE SUMMARY DATE OF : [birth year] PHYSICIAN: ROBBIN PIMENTEL MD REPORT #: [id number] REPORT IS CONFIDENTIAL AND NOT TO BE RELEASED WITHOUT AUTHORIZATION [facility] [address], [place] [address] Signed made for a laparoscopic approach. On January 05, 2017, he underwent laparoscopy with lysis of adhesions. He was found to have a dense inflammatory cicatrix of the ileocecal area with tethering of the sigmoid. Despite efforts to do so, the inflammatory process could not be mobilized from a laparoscopic approach and therefore a low midline incision was made. This allowed for identification of a probable fistula development between the ileocecal valve area and the apex of the rectosigmoid. This was divided with a stapling device and there was no sign of narrowing of the remaining rectosigmoid. Inflammatory process of the sigmoid and ileum was resected and a ebff-dc-vibk ileocolonic anastomosis undertaken. Endomark tattooing of the rectosigmoid repair of the fistula was undertaken through the serosa to better identify when endoscopic evaluation is next undertaken as to the area of the previous fistula. The operation was prolonged, complicated, and difficult. On postoperative day 1, he was noted to be sore, but did desire some coffee. He was given limited liquids. He was encouraged to ambulate and appeared to be tolerating the operation quite well. His pain was controlled with a Dilaudid STAKES PLAYER. The Gonzalez catheter was removed. He was advanced in his diet as tolerated to a full liquid diet, but he had not yet had a bowel movement, but had some "rumbling." He does have an underlying anxiety disorder. He began having abdominal distention on postoperative day 3. Some tachycardia and hypertension were noted and worsening anxiety was noted. He had no vomiting, but no loss of bowel function either. He was noted on January 08 at 10 p.m. to have an elevated white count of 16,000 with some distention. A nasogastric tube was placed, which delivered copious amounts of yellow succus entericus, nearly a liter in total. He was somewhat somnolent related to sedation and tachycardic as well. Fluid boluses were initiated. By the following day, he was noted to have a white count markedly elevated to 31.9. A CT scan was repeated, which showed free intraabdominal air, which would be consistent with timeframe since operation, but also some air in the region of the ileocolonic anastomosis. On the basis of these findings, he was brought back to operation on January 09, 2017. He was found to have an intraabdominal abscess in the region of the ileocolonic anastomosis related to an enteric leak. Wayne ischemia of the ileal segment incorporating the anastomosis was noted. I believe this was related to a foreshortened mesentery related to that segment of the ileus. Drainage of the abscess was undertaken and resection of the previous ileal colonic area undertaken. With a clearly viable segment of ilium at this point, a second dyzu-ih-zrzs ileal colonic anastomosis was accomplished. This was using a 2-layer technique of 3-0 silk suture in the seromuscular layer and Vicryl in the mucosal layer. A drain was placed as well. Additionally, a central venous catheter was placed. This operation was on January 09. Electronically Signed By: ROBBIN PIMENTEL MD 01/17/17 1503 PATIENT NAME: ADRIENNE CANALES DISCHARGE SUMMARY DATE OF : [birth year] PHYSICIAN: ROBBIN PIMENTEL MD REPORT #: [id number] REPORT IS CONFIDENTIAL AND NOT TO BE RELEASED WITHOUT AUTHORIZATION [facility] [address] [place] [id number] Signed He was maintained in the intensive care unit given the operative findings of abscess and so forth. Broad-spectrum antibiotics which have been initiated preoperatively including Zosyn was maintained. He had prompt resolution of his septic findings including no evidence of spiking temperatures and decreased white count. Nasogastric tube was allowed to remain in place. He did have some anxiety, which prompted him to withdraw his nasogastric tube on postoperative day 3. It was anticipated it would be removed at that time anyway. Within the 12 hours of removal of the nasogastric tube, he did begin having bowel movements. His sensorium cleared quite markedly and he progressed in diet from liquids to full liquids and ultimately to solid diet. By the time of discharge, he was ambulating well. The drain that was placed in the pelvis was removed as it was draining only serous fluid. He was transitioned to oral antibiotics Cipro and Flagyl from Zosyn. His Gonzalez catheter was removed and he was spontaneously voiding. He was quite eager to return to the [facility]. The patient is noted to have significant anxiety disorder as well as reflux-type symptoms. DISCHARGE MEDICATIONS Will include: Cipro 500 mg 1 tab p.o. b.i.d., #14. Flagyl 250 mg p.o. t.i.d., #21. Percocet 7.5/325 one to two q.4 hours p.r.n. pain, #20. Pantoprazole (Protonix) 40 mg p.o. daily. Resumption of calcium carbonate, vitamin D3, and vitamin D 400 t tab p.o. b.i.d. Mesalamine (Delzicol 400 mg, Keflex 800 mg p.o. t.i.d.). Melatonin (Meladox 3 mg p.o. q.h.s.). Strattera (atomoxetine 80 mg p.o. q.h.s.). Lexapro 10 mg p.o. q.h.s. Hydroxyzine 50mg tablets 50-100 mg t.i.d. as needed for anxiety. He would discontinue at this point lactulose. FOLLOWUP PLAN I will see him in the assisted clinic in the next few weeks. He will maintain a regular diet. He should lift no more than 20 pounds for the next 4 weeks. He is permitted to shower. He will leave Steri-Strips on. DISCHARGE DIAGNOSES Crohn's related stricture and relative bowel obstruction at the ileocecal valve area Electronically Signed By: ROBBIN PIMENTEL MD 01/17/17 1503 PATIENT NAME: ADRIENNE CANALES DISCHARGE SUMMARY DATE OF : [birth year] PHYSICIAN: ROBBIN PIMENTEL MD REPORT #: [id number] REPORT IS CONFIDENTIAL AND NOT TO BE RELEASED WITHOUT AUTHORIZATION [address] [address] Signed with concurrent ileosigmoid colonic fistula (divided) causing relative large-bowel obstruction. Status post ileocolectomy and division of ileocolonic fistula with uerx-uw-[id number] ileal right colonic anastomosis. Complication of ischemic change of ileocolonic anastomosis resulting in leakage and abscess requiring abscess drainage and ileocolonic resection with ltqb-du-pesu ileocolonic anastomosis. Underlying anxiety disorder. Crohn's disease with anaphylaxis to Remicade and Humira. Gastroesophageal reflux. MD ROMERO Cooper/Modl /[id number] cc: Grady Amaro MD EOC Electronically Signed By: ROBBIN PIMENTEL MD 01/17/17 1503 PATIENT NAME: ADRIENNE CANALES DISCHARGE SUMMARY DATE OF : [birth year] PHYSICIAN: ROBBIN PIMENTEL MD REPORT #: [id number] REPORT IS CONFIDENTIAL AND NOT TO BE RELEASED WITHOUT AUTHORIZATION
[2017-01-18] MEDS ORDERED: ULTRAM50 MG PO (16:35)
== END 2017-01-13 17:42 | disposition home or self-care (01) | DRG 329 ==
LOC: ED 19:22 → MS 19:24 → ED 23:59 → MS 23:59 → CCU 01-09 18:01 → MS 01-11 16:35
PROVIDERS: ADMIT Surgery
PROC: 0DBK0ZZ Excision of Ascending Colon, Open Approach (ICD-10-PCS; principal; 2017-01-05 14:00)
PROC: 0DBB0ZZ Excision of Ileum, Open Approach (ICD-10-PCS; 2017-01-05 14:00)
PROC: 0DBK0ZZ Excision of Ascending Colon, Open Approach (ICD-10-PCS; 2017-01-09)
PROC: 0DBB0ZZ Excision of Ileum, Open Approach (ICD-10-PCS; 2017-01-09)
PROC: 0D9 Gastrointestinal System, Drainage (ICD-10-PCS; 2017-01-09)
PROC: 05H633Z Insertion of Infusion Device into Left Subclavian Vein, Percutaneous Approach (ICD-10-PCS; 2017-01-09)
PROC: 3E0436Z Introduction of Nutritional Substance into Central Vein, Percutaneous Approach (ICD-10-PCS; 2017-01-09)
DX: K50.913 Crohn's disease, unspecified, with fistula (principal); A41.9 Sepsis, unspecified organism; K91.89 Other postprocedural complications and disorders of digestive system; K91.3 Postprocedural intestinal obstruction; K50.912 Crohn's disease, unspecified, with intestinal obstruction; K50.914 Crohn's disease, unspecified, with abscess; Y83.2 Surgical operation with anastomosis, bypass or graft as the cause of abnormal reaction of the patient, or of later complication, without mention of misadventure at the time of the procedure; Z78.1 Physical restraint status
CPT/HCPCS: 00840; 00860; 31500; 36415; 51798; 71010; 74000; 74020; 74177; 80048; 80053; 81001; 82247; 82465; 83615; 83690; 83735; 84100; 84478; 84550; 85025; 87070; 87075; 87077; 87186; 87205; 96361; 96372; 96374; 96375; 96376; 99285; G0378; J0330; J0360; J0694; J1100; J1170; J1630; J1644; J1720; J1885; J2060; J2250; J2270; J2370; J2405; J2543; J2704; J2710; J2765; J3010; J3475; J7030; J7120; Q9967

== ENCOUNTER → 2017-01-18 | Emergency (ER) | payer OTHER ==
[~2017-01-18] VITALS: Ht 182.9 cm; Wt 95.2 kg
[~2017-01-18] MED LIST changes: +BUDESONIDE EC3 MG PO; +CIPROFLOXACIN500 MG PO; +CITRATE OF MAG296 ML PO; +CONSTULOSE10 GM/15 M PO; +FERROUS SULFAT324 MG PO; +IMURAN50 MG PO; +MERCAPTOPURINE50 MG PO; +METRONIDAZOLE250 MG PO; +MILLIPRED5 MG PO; +ONDANSETRON ODT8 MG PO; +SALINE MIST44 ML NAS; +TRAMADOL HCL50 MG PO; +ULTRAM50 MG PO; +VITAMIN C500 M1 PO
== END | disposition home or self-care (01) ==
LOC: ED 16:12
DX: G89.18 Other acute postprocedural pain (principal); Z88.8 Allergy status to other drugs, medicaments and biological substances; Z79.899 Other long term (current) drug therapy
CPT/HCPCS: 74020; 80053; 81001; 83690; 85025; 96374; 99284; J2405

== ENCOUNTER 2017-01-24 18:24 | Inpatient (IN) | payer OTHER ==
[~2017-01-24] VITALS: Ht 182.9 cm; Wt 99.6 kg
--- NOTE | ~2017-01-24 | HP ---
[facility] [address] [facility] [place], [place] [address] Draft ADMIT DATE: 01/24/2017 HISTORY OF PRESENT ILLNESS: I was called by the ER physician to see this fellow who has a complicated history. He is about 2 weeks postop from [address] Chaparro here for apparent gross disease of fistula into his sigmoid. First operation it looks like here was the repair of the fistula and an ileocecectomy, which apparently he suffered a leak and had an abscess from the anastomosis, so he was taken back postop day 4 or 5 and had a reresection and reanastomosis, pretty good washout and he seemed to have done okay from that and then ended up getting discharged back to detention on prednisone 5 mg a day. He takes other medicines including Lexapro, melatonin. He was on Cipro and Flagyl. He has been off that. His main complaint today was abdominal pain and multiple, multiple bowel movements, which he said were bloody and tarry and the ER doc identified heme-negative stool in his rectum, and it was not bloody or tarry. He does have some abdominal pain and of note the workup included lab work, which showed his white count to be a little bit elevated at 12.0 with hematocrit of 35 and 631,000 platelets. Sodium 141, potassium 4.1, BUN 11, creatinine 0.7. Rest of his CMP was normal. Normal amylase, lipase and LFTs. His vital signs, in the ER, he is a little bit tachycardic in the 110s, but his blood pressure is 130, and his respiratory rate is 12-15. Of note, he said he did not have any fevers with this. May be, he said, he is always cold. Nausea, but no vomiting. PAST MEDICAL HISTORY: He says he is allergic to Remicade and Humira. He says Humira caused him to have A-Fib twice. MEDICATIONS: He had been on some tramadol for pain. Somebody put him in Imuran. I am holding that for the time being. I am going to go ahead and give him his prednisone. He was on Strattera for ADHD. I am going to order that and I will order some of the other medicines he was on in the detention. PAST SURGICAL HISTORY: Operations include these 2 recent belly operations. He also has a fistula in his rectum with a Seton. Says he has had Crohn's since 2009. He denies hypertension, diabetes, tuberculosis, seizure, or transfusions. SOCIAL HISTORY: He says he does not smoke or use alcohol and there is no history of thromboembolic PATIENT NAME: ADRIENNE CANALES HISTORY AND PHYSICAL DATE OF : [birth year] PHYSICIAN: RENO HERNÁNDEZ MD REPORT #: [id number] REPORT IS CONFIDENTIAL AND NOT TO BE RELEASED WITHOUT AUTHORIZATION [address] [address] Draft disease. He is not , does not have any children. He is in detention. His hobby is hanging out in detention, playing cards, and doing what you do in detention. I am unaware of why he is in detention. REVIEW OF SYSTEMS: Negative for FL, negative for stroke. Positive for having A-Fib twice, he says when he had been on Humira. Negative for lung disease. Positive for Crohn's disease with his operations. Negative for problems, but he says it gonzales when he urinates. His urinalysis in the ER was normal. He says his kidneys are okay. He says he has got a history of hep c from a tattoo. Negative for lymph problem, negative for thyroid problems, endocrine problems, and negative for neurological problem except for anxiety and ADHD. PHYSICAL EXAMINATION: VITAL SIGNS: His vital sign s in the ER, he is a little bit tachycardic in the 110s, but his blood pressure is 130, and his respiratory rate is 12-15. HEAD, EYES, EARS, NOSE AND THROAT: Normal. NECK: Without jugular venous distention, masses, or bruits. CHEST: His chest seems clear. HEART: He does have a bit of tachycardia. I cannot hear any rubs, gallops, or murmurs. ABDOMEN: He has got an obese abdomen, looks like he has lost some weight. Bowel tones are present. He is tender when I poke him, but I do not see any spreading peritonitis or rigidity. EXTREMITIES: The femoral pulses are normal as is posterior tibial pulses. RECTAL: ER doctor did the rectal exam, so I did not feel it was necessary to repeat that. IMPRESSION: I did talk to the emergency general surgeon up at [facility]. I think this patricia is quite complicated and I think he probably needed to be managed there where they got GI Medicine and they got GI surgeons who deal with his inflammatory bowel disease all the time. Right now, he does not appear to have an acute surgical abdomen. I reviewed his CT. He does have quite a bit of inflammation in his right lower quadrant. I think we are going to sit on him overnight, repeat his labs in the morning, give him IV fluids at 200 an hour, try to get his stool for Clostridium difficile and enteric pathogens. I will put him on p.o. Flagyl and see where all these goes. Give him some Dilaudid for pain, Zofran for nausea, vitamin A 20,000 units p.o. daily for a week. I hope we get him transferred to a higher institution level of care. I am not rafi e of somebody who has had his compensated postop story should be managed here by me in the hospital, so I did talk to the hospitalist for assistance with his care, who tends to agree. I will be meeting up with the hospitalist in the morning. PATIENT NAME: ADRIENNE CANALES HISTORY AND PHYSICAL DATE OF : [birth year] PHYSICIAN: RENO HERNÁNDEZ MD REPORT #: [id number] REPORT IS CONFIDENTIAL AND NOT TO BE RELEASED WITHOUT AUTHORIZATION [address] [place] [address] Draft MD BRYCE Sánchez/Modl /[id number] PATIENT NAME: ADRIENNE CANALES HISTORY AND PHYSICAL DATE OF : [birth year] PHYSICIAN: RENO HERNÁNDEZ MD REPORT #: [id number] REPORT IS CONFIDENTIAL AND NOT TO BE RELEASED WITHOUT AUTHORIZATION
--- NOTE | ~2017-01-24 | DS ---
[facility] [address], [place] [address] Draft ADMIT DATE: 01/24/2017 DISCHARGE DATE: 01/25/2017 ADMISSION DIAGNOSES: Abdominal pain, multiple bowel movements, Crohn disease, postoperative state for about 2 weeks. DISCHARGE DIAGNOSES: Abdominal pain, multiple bowel movements, Crohn disease, postoperative state for about 2 weeks. OPERATIONS: Done on this hospitalization was none. The H and P was dictated by me. HISTORY: This [place] with a complicated history, came in complaining of abdominal pain and multiple bowel movements. Of note, overnight, he did not have any bow el movements. He recently about 2 weeks ago ended up having 2 operations about 5 days apart for Crohn disease with the first one resulted in apparent anastomotic leak and a re-resection and a reanastomosis by the surgeons here. It seemed like he probably d id okay and was sent back to the penitentiary on some antibiotics for a few days and he came back with pain and nausea and tachycardia, and workup by the ER doctor found to have phlegmon in his right lower quadrant, no obvious intraabdominal abscess, a bit of leukocytosis of 12,000 and they called me last night to see him and I felt that he should be transferred to higher level care institution where they had GI Medicine, General Surgery, etc., etc., and [facility] because [facility] usually refe r to and they full and unable to except. They told me to call back this morning. I talked to Dr. Talley with the colon and rectal group over at [facility] and they agreed to take this fellow on transfer. Overnight, he developed a fever to 100.5 and he had been gi v en some Tylenol. He had been febrile all day today, 99, 99, currently 100.7, we have been running his IVs. He looked okay, but he still has pain. I am concerned that there is something going on in him, and if he requires surgery, 2 weeks is a difficult ti me postop to be intervening. Hopefully, they will have other modalities to try to figure this out and treat him. I have kept him on his prednisone 5 mg a day here. I held his Imuran. When he had his fever, I started him on IV Cipro this morning. He had been getting p.o. Flagyl. As far as I know, he has not had stools since he has been here and I have not been told anything about any C. difficile testing. I am not sure what is going on with this fellow. I certainly think he needs to be at a place with higher levels of care with GI Medicine, Radiology on weekend who can do further studies, qualify General Surgery, etc. We wish everybody luck with his care. PATIENT NAME: ADRIENNE CANALES DISCHARGE SUMMARY DATE OF : [birth year] PHYSICIAN: RENO HERNÁNDEZ MD REPORT #: [id number] REPORT IS CONFIDENTIAL AND NOT TO BE RELEASED WITHOUT AUTHORIZATION [facility] [address], [place] [address] Draft MD BRYCE Sánchez/Jarred /[id number] PATIENT NAME: ADRIENNE CANALES DISCHARGE SUMMARY DATE OF : [birth year] PHYSICIAN: RENO HERNÁNDEZ MD REPORT #: [id number] REPORT IS CONFIDENTIAL AND NOT TO BE RELEASED WITHOUT AUTHORIZATION
[~2017-01-24 18:24] MED LIST changes: -BUDESONIDE EC3 MG PO; -CITRATE OF MAG296 ML PO; -CONSTULOSE10 GM/15 M PO; -FERROUS SULFAT324 MG PO; -IMURAN50 MG PO; -MERCAPTOPURINE50 MG PO; -MILLIPRED5 MG PO; -ONDANSETRON ODT8 MG PO; -SALINE MIST44 ML NAS; -VITAMIN C500 M1 PO
[2017-01-24] MEDS ORDERED: CITRATE OF MAG296 ML PO (20:41)
[2017-01-24] MEDS ORDERED: IMURAN50 MG PO (20:41)
[2017-01-24] MEDS ORDERED: MILLIPRED5 MG PO (20:47)
--- NOTE | 2017-01-24 23:30 | NUR ---
PATIENT ARRIVED TO THE FLOOR VIA STRETCHER. PATIENT AMBULATED FROM THE STRETCHER TO THE HOSPITAL BED. PATIENT IS IN 4 POINT RESTRAINTS AND ACCOPMANIED WITH 2 GUARDS. PATIENT GIVEN ICE CHIPS PER ORDER. PATIENT DENIES ANY NEEDS AT THIS TIME. CALL LIGHT IN REACH. ORIENTED PATIENT TO FLOOR AND UNIT.
--- NOTE | 2017-01-25 00:51 | NUR ---
ASSESSMENT COMPLETED. PT IS ALERT/ORIENTED, REPORTS 9/10 ABDOMINAL PAIN, 1MG IV DILAUDID GIVEN. LUNGS CLEAR, RA. HR REGULAR, TACHYCARDIC. BOWEL TONES HYPERACTIVE, REPORTS GAS AND DISCOMFORT, 4MG SL ZOFRAN ADMINISTERED. CMS INTACT. MIDLINE ABDOMINAL SCAR, ~5 INCHES, FROM PREVIOUS SURGERY, WELL-APPROXIMATED, NO REDNESS OR SWELLING NOTED. PT HAS 2 GUARDS IN ROOM AND RESTRAINTS X4 EXTREMITIES WITH BELLY CHAIN. DISCUSSED WITH PT ABOUT NEEDING TO OBTAIN STOOL SAMPLE. IV PATENT, INFUSING WNL. PT GIVEN PO MEDS WITH SIP OF WATER AND HAS ICE CHIPS FOR COMFORT, OTHERWISE IS NPO. PT DENIES FURTHER REQUESTS AT THIS TIME, WILL CONTINUE TO MONITOR.
--- NOTE | 2017-01-25 01:34 | NUR ---
CALLED DR. HERNÁNDEZ TO REPORT ELEVATED HEART RATE OF 142. NEW ORDERS RECEIVED: 12-LEAD EKG, HOSPITALIST CONSULT, AND 0.5MG IV ATIVAN Q6 PRN ANXIETY. HE STATED THAT IF THE RESULTS WERE ANYTHING EXCEPT SINUS TACHYCARDIA TO NOTIFY THE HOSPITALIST. ALSO CLARIFIED WITH DR. HERNÁNDEZ THAT THE STRATTERA DOSE IS TO BE GIVEN HS, E-PHARMACY WANTED CLARIFICATION, SENT REPLY FAX TO PHARMACY. CALLED RT FOR EKG.
--- NOTE | 2017-01-25 01:55 | NUR ---
0.5MG IV ATIVAN GIVEN FOR ANXIETY. EKG SHOWED SINUS TACHYCARDIA, WILL NOT CALL HOSPITALIST AT THIS TIME, EKG PLACED ON CHART. PT REPORTS THAT ABDOMINAL PAIN IS STARTING TO COME BACK, RATES IT 8/10, DISCUSSED WITH HIM ABOUT RECEIVING ATIVAN AT THIS TIME AND WAITING TO GIVE PAIN MEDS FOR ANOTHER 30 MINUTES OR SO, PT STATES UNDERSTANDING. WILL CONTINUE TO MONITOR. PT VOIDED 450ML, PALE YELLOW URINE, WAS UNABLE TO HAVE BM. CALL LIGHT WITHIN REACH, NO FURTHER REQUESTS AT THIS TIME.
--- NOTE | 2017-01-25 02:41 | NUR ---
1MG IV DILAUDID GIVEN FOR 9/10 ABDOMINAL PAIN. PT RESTING IN BED, 2 GUARDS AT BEDSIDE. PT RESTING WITH EYES CLOSED, NO GRIMACING, MOANS, OR OTHER VISIBLE SIGNS OF PAIN. WILL CONTINUE TO MONITOR.
--- NOTE | 2017-01-25 03:45 | NUR ---
PT CALLED BECAUSE IV POLE WAS ALARMING, NEW BAG OF IV FLUIDS STARTED AT THIS TIME. PT STATES PAIN HAS ONLY IMPROVED TO 8/10. PT STATES THAT HE IS HAVING BURNING DURING URINATION, WILL CONTINUE TO MONITOR.
--- NOTE | 2017-01-25 05:33 | NUR ---
ASSESSMENT COMPLETED. ALERT/ORIENTED, REPORTS 9/10 ABDOMINAL PAIN, 1MG IV DILAUDID GIVEN. PT REPORTS MILD NAUSEA AND DISCOMFORT FROM GAS, 4MG SL ZOFRAN GIVEN. LUNGS CLEAR, RA. HR REGULAR, REMAINS TACHY. BOWEL TONES ACTIVE. IV PATENT, INFUSING WNL. 2 GUARDS REMAIN AT BEDSIDE, RESTRAINTS X4 EXTREMITIES IN PLACE. CMS INTACT. PT DENIES FURTHER REQUESTS AT THIS TIME, WILL CONTINUE TO MONITOR.
--- NOTE | 2017-01-25 05:38 | NUR ---
EOCI. ALERT/ORIENTED, DID NOT SLEEP MUCH. ANXIOUS, PRN ATIVAN GIVEN ONCE. REPORTS 7-9/10 ABDOMINAL PAIN, 1MG IV DILAUDID GIVEN ~Q2 HOURS. LUNGS CLEAR, RA. HR REGULAR, TACHY, EKG DONE: SINUS TACHYCARDIA. BOWEL TONES ACTIVE, NO BM DURING SHIFT, STOOL SAMPLE NEEDED, 4MG SL ZOFRAN GIVEN TWICE FOR MILD NAUSEA AND GAS DISCOMFORT. VOIDING QS, PT REPORTS BURNING WITH URINATION, UA NEGATIVE FOR BACTERIA. STEADY ON FEET, INDEPENDENT IN ROOM WITH 2 GUARDS. RESTRAINTS X4 EXTREMITIES. NPO EXCEPT FOR ICE CHIPS, HARD CANDY, AND PO MEDS. IV PATENT, D5NS+20K @ 200ML/HR. PO ABX: FLAGYL.
--- NOTE | 2017-01-25 06:20 | NUR ---
PT HAD TEMP OF 100.4 THIS MORNING, CALLED DR. HERNÁNDEZ AND RECEIVED ORDER FOR 650MG PO TYLENOL Q4 PRN FEVER. PT ALSO WAS REQUESTING SOMETHING FOR GAS, NEW ORDER RECEIVED FOR SIMETHICONE 80MG PO QID PRN. ADMINISTERED BOTH THESE MEDICATIONS AT THIS TIME, INSTRUCTED USE OF I.S., PT DEMONSTRATED, AND DISCUSSED WITH PT NEED TO AMBULATE. PT STATES STATES UNDERSTANDING.
--- NOTE | 2017-01-25 08:00 | NUR ---
RECEIVED REPORT FROM DEMETRIO ROY. PT AWAKE AND ALERT. CALLED FOR PAIN MEDS AT 0740. DILAUDID AND SCHEDULED MEDS GIVEN. BOWEL TONES ACTIVE. LUNGS CLEAR. RESP THERAPY IN TO ENCOURAGE IS AND SUPERVISE SEVERAL BREATHS. GUARDS CHANGED AT 0755. PT OFF FLOOR FOR CHEST X RAY VIA W/C AT 0800. PT REPORTS 8/10 ABD PAIN. MILD NAUSEA. ICE CHIPS AT BEDSIDE. WILL PLAN TO AMBULATE WITH PATIENT SOON HE IS BACK FROM X-RAY.
--- NOTE | 2017-01-25 08:22 | NUR ---
pt ambulated 1 lap with 2 guards in halls after being back from x-ray.
--- NOTE | 2017-01-25 11:21 | NUR ---
working with transfer center and case management at [facility] to see if pt will be accepted to transfer. fax sent to care management at [facility] at 1100.
--- NOTE | 2017-01-25 12:42 | NUR ---
ANSWERED A CALL FROM [employer] AT [facility] THAT THE BED REQUEST IS IN, THEY ARE AT FULL CAPACITY AND WILL CONTACT US WHEN A BED IS AVAILABLE!
--- NOTE | 2017-01-25 12:48 | NUR ---
pt ambulating halls now. appears comfortable.
--- NOTE | 2017-01-25 13:19 | EKG ---
[facility] [address] [facility] [place] [address] Signed Sinus tachycardia Minimal voltage criteria for LVH, may be normal variant Borderline ECG No previous ECGs available Confirmed by ODALIS MACDONALD MD ([id number]) on 01/25/2017 1:18:49 PM Electronically Signed By: ODALIS MACDONALD MD 01/25/17 1319 PATIENT NAME: ADRIENNE CANALES Electrocardiogram DATE OF : 89 PHYSICIAN: ODALIS MACDONALD MD REPORT #: [id number] REPORT IS CONFIDENTIAL AND NOT TO BE RELEASED WITHOUT AUTHORIZATION
--- NOTE | 2017-01-25 16:04 | NUR ---
BED CONFIRMATION FROM [facility]. CALL TO [facility] FOR TRANSPORT. WAITING FOR CONFIRMATION IF THEY CAN TAKE PT.
--- NOTE | 2017-01-25 16:22 | NUR ---
[facility] UNAVAILABLE TO TAKE PT. CALL TO [facility] FOR POSSIBLE AVAILABLITY.
--- NOTE | 2017-01-25 16:36 | NUR ---
[facility] UNAVAILABLE FOR TAKE TRANSPORT. [facility] CALLED TO CHECK AVAILABILITY.
--- NOTE | 2017-01-25 16:48 | NUR ---
[facility] UNAVAILABLE TO TAKE PT TO [place]. CALL TO [facility] FOR TRANSPORT.
--- NOTE | 2017-01-25 16:49 | NUR ---
working on getting transfer put together for patient to go to [facility]. Sabrina ROY working on paperwork.
--- NOTE | 2017-01-25 16:55 | NUR ---
pt ambulating halls now. anxious to have pain meds. appears comfortable. no grimace. does not pull back from palpation.
--- NOTE | 2017-01-25 16:58 | NUR ---
[facility] TO TAKE PT BY FIXED WING. TRANSFER CENTER NOTIFIED. ETA TO BEDSIDE 45 MIN
== END 2017-01-25 19:20 | disposition short-term general hospital (02) | DRG 386 ==
LOC: ED 18:24 → MS 22:35
PROVIDERS: ADMIT Surgery
DX: K50.914 Crohn's disease, unspecified, with abscess (principal); K50.912 Crohn's disease, unspecified, with intestinal obstruction; D72.829 Elevated white blood cell count, unspecified; R00.0 Tachycardia, unspecified
CPT/HCPCS: 36415; 71010; 74020; 74177; 80053; 81001; 82150; 83605; 83690; 83735; 84100; 85025; 86140; 87040; 93005; 93010; 96361; 96374; 99285; J0744; J1170; J2060; J2405; J3370; J7030; J7060; J7512; Q9967

== ENCOUNTER 2017-04-03 20:32 | Emergency (ER) | payer OTHER ==
[~2017-04-03] VITALS: Ht 182.9 cm; Wt 99.3 kg
[~2017-04-03 20:32] MED LIST changes: +CITRATE OF MAG296 ML PO; +IMURAN50 MG PO; +MILLIPRED5 MG PO
[2017-04-03] MEDS ORDERED: SALINE MIST44 ML NAS (21:01)
[2017-04-03] MEDS ORDERED: FERROUS SULFAT324 MG PO (21:02)
[2017-04-03] MEDS ORDERED: BUDESONIDE EC3 MG PO (21:02)
[2017-04-03] MEDS ORDERED: CONSTULOSE10 GM/15 M PO (21:05)
[2017-04-03] MEDS ORDERED: MERCAPTOPURINE50 MG PO (21:05)
[2017-04-03] MEDS ORDERED: ONDANSETRON ODT8 MG PO (21:06)
[2017-04-03] MEDS ORDERED: MIRALAX17 GM PO (21:07)
[2017-04-03] MEDS ORDERED: VITAMIN C500 M1 PO (21:07)
--- NOTE | 2017-04-04 14:21 | EKG ---
[facility] [address] [facility] [place] [address] Signed Sinus tachycardia Otherwise normal ECG When compared with ECG of 25-JAN-2017 01:38, Questionable change in QRS axis T wave inversion no longer evident in Inferior leads Confirmed by SHAY MURILLO MD ([id number]) on 04/04/2017 2:20:58 PM Electronically Signed By: SHAY MURILLO MD 04/04/17 1421 PATIENT NAME: ADRIENNE CANALES Electrocardiogram DATE OF : [birth year] PHYSICIAN: SHAY MURILLO MD REPORT #: [id number] REPORT IS CONFIDENTIAL AND NOT TO BE RELEASED WITHOUT AUTHORIZATION
== END 2017-04-03 23:38 | disposition home or self-care (01) ==
LOC: ED 20:32
DX: K50.90 Crohn's disease, unspecified, without complications (principal); Z88.7 Allergy status to serum and vaccine; Z88.8 Allergy status to other drugs, medicaments and biological substances; Z79.899 Other long term (current) drug therapy; Z91.011 Allergy to milk products; Z79.52 Long term (current) use of systemic steroids; Z98.890 Other specified postprocedural states
CPT/HCPCS: 80053; 81001; 83690; 85025; 93005; 93010; 96361; 96374; 96375; 99284; J2405; J2930; J7030

== ENCOUNTER 2017-11-25 10:59 | Day surgery (SDC) | payer OTHER ==
[~2017-11-25] VITALS: Ht 182.9 cm; Wt 98.4 kg
[~2017-11-25 10:59] MED LIST changes: +BUDESONIDE EC3 MG PO; +CONSTULOSE10 GM/15 M PO; +FERROUS SULFAT324 MG PO; +MERCAPTOPURINE50 MG PO; +ONDANSETRON ODT8 MG PO; +SALINE MIST44 ML NAS; +VITAMIN C500 M1 PO
--- NOTE | 2017-11-25 13:14 | NUR ---
11/25/17 1314 [place] 1306 PATIENT ARRIVED TO PACU. PATIENT AWAKE OFF AND ON, VITALS ARE STABLE. PATIENT ON 3L 02 FOR 100% 1313 PATIENT REPORTS BEING AWAKE DURING SCOPE. PATIENT TITRATED TO RA. PATIENT DENIES PAIN AND NAUSEA AT THIS TIME. GUARDS X2 WITH PATIENT.
--- NOTE | 2017-11-26 12:00 | OR ---
[facility] [address] [place], [place] [address] Signed DATE OF OPERATION: 11/25/2017 SURGEON: Robbin Pimentel MD PREOPERATIVE DIAGNOSES: 1. Longstanding Crohn's disease, prior ileocolonic resection with skap-eg-yxys ileocolostomy. 2. Episodic recurrent husmbrp-ko-oap. 3. Anaphylactic allergy to Humira and Remicade. POSTOPERATIVE DIAGNOSES: 1. A ofds-qi-hujs ileocolonic anastomosis with mild inflammatory change and granuloma formation without sign of stricture, or obstruction. 2. Ffwyucj-vg-pvw at approximately 1 o'clock position. PROCEDURE: Total colonoscopy to cecum with biopsies. ANESTHESIA: Intravenous sedation. Fentanyl 300 mcg and Versed 13 mg. INDICATION: This 26-year-old white man is a prisoner at [facility] and a patient of Dr. Ferrara. He is well known to me from the past. He is known to have Crohn's disease, which has been variably manifested as episodic aldjirv-jv-uxv drainage. He did have an episode of small bowel obstruction related to advanced ileocolonic disease, for which he underwent resection by me and xbye-eo-zzws ileocolonic anastomosis. He is quite allergic to Humira and Remicade, and has been on Delzicol. He has been seen elsewhere, and another biologic agent given, I believe Entyvio, which he tolerated. He was recently seen by me on October 24, 2017, noted to have oral ulcerations likely related to Crohn's disease and episodic perirectal drainage. He also has occasional crampy abdominal pain. He is admitted at this time to undergo colonoscopy to better characterize his status of disease. He understands the risks of bleeding, infection, and perforation. Findings, a zgsuyxz-ah-rqc was noted at the 1 o'clock position. Strangely, the rectal mucosa appeared normal on colonoscopic evaluation. The remaining colon appeared essentially normal. The ileocolonic anastomosis was widely Electronically Signed By: ROBBIN PIMENTEL MD 11/26/17 1200 PATIENT NAME: ADRIENNE CANALES OPERATIVE REPORT DATE OF : [birth year] REPORT #: [id number] PHYSICIAN: ROBBIN PIMENTEL MD PCP: GRADY FERRARA MD REPORT IS CONFIDENTIAL AND NOT TO BE RELEASED WITHOUT AUTHORIZATION [facility] [address] [place], [place] [address] Signed patent due to its qtjs-jh-hoil anatomic configuration, but there were granuloma changes in the area, but without stricturing. The ileum itself appeared normal. PROCEDURE IN DETAIL: The patient was brought to the endoscopy suite and placed in lateral decubitus position given intravenous sedation to the point of slurred speech and nystagmus with full cardiopulmonary monitoring. He required additional sedation throughout the procedure, had surprisingly a high tolerance for the medication. Perianal examination showed a bqhcdmq-oj-axw with some purulent drainage at the 1 o'clock position. Digital examination was otherwise normal. There was no sign of un-drained purulence. There was no abscess. The Olympus video colonoscope was passed in the rectum, and manipulated throughout the colon ultimately intubating the right colon where a qqjw-yr-mjzu ileocolonic anastomosis was noted. Granuloma formation was noted in the area, but there was no sign of dense stricture. The ileal mucosa itself appeared reasonably normal. Biopsies were taken of it and the granuloma changes. The scope was then withdrawn from that point, and the mucosa of the colon with impressively normal otherwise. Retroflex view in the rectum showed no sign of origin of the yehmelr-od-bur, specifically at the dentate line. Biopsies were taken of the rectum. The scope was removed, then, photograph was taken of the perianal tissue affirming truly a chronic vqqrsew-rd-vwb, which appeared at 1 o'clock position. The scope was then removed, and the patient taken to recovery room in good condition. CONCLUDING DIAGNOSES: 1. Ktrqfig-qh-mpr, no doubt Crohn's related. 2. Ileocolonic anastomosis widely patent without signs of near obstruction. Granuloma changes as expected. PLAN: He will see me back in the snf clinic in the next visit. We will review his pathology reports and his course of management. Robbin Pimentel MD /VENESSAL /[id number] Electronically Signed By: ROBBIN PIMENTEL MD 11/26/17 [facility] PATIENT NAME: ADRIENNE CANALES OPERATIVE REPORT DATE OF : [birth year] REPORT #: [id number] PHYSICIAN: ROBBIN PIMENTEL MD PCP: GRADY FERRARA MD REPORT IS CONFIDENTIAL AND NOT TO BE RELEASED WITHOUT AUTHORIZATION [address] [address] Signed cc: Grady Ferrara MD Copies: GRADY FERRARA MD ~ Electronically Signed By: ROBBIN PIMENTEL MD 11/26/17 1200 PATIENT NAME: ADRIENNE CANALES OPERATIVE REPORT DATE OF : [birth year] REPORT #: [id number] PHYSICIAN: ROBBIN PIMENTEL MD PCP: GRADY FERRARA MD REPORT IS CONFIDENTIAL AND NOT TO BE RELEASED WITHOUT AUTHORIZATION
== END 2017-11-25 13:45 | disposition home or self-care (01) ==
LOC: DS 10:59 → OPS 10:59 → DS 12:00 → OPS 13:45
PROVIDERS: Surgery
PROC: 0DBE8ZX Excision of Large Intestine, Via Natural or Artificial Opening Endoscopic, Diagnostic (ICD-10-PCS; 2017-11-25)
PROC: 0DBP8ZX Excision of Rectum, Via Natural or Artificial Opening Endoscopic, Diagnostic (ICD-10-PCS; 2017-11-25)
PROC: 0DBB8ZX Excision of Ileum, Via Natural or Artificial Opening Endoscopic, Diagnostic (ICD-10-PCS; principal; 2017-11-25 12:00)
DX: K52.9 Noninfective gastroenteritis and colitis, unspecified (principal); K62.5 Hemorrhage of anus and rectum; K60.3 Anal fistula; K63.89 Other specified diseases of intestine; K12.1 Other forms of stomatitis; F90.9 Attention-deficit hyperactivity disorder, unspecified type; K50.00 Crohn's disease of small intestine without complications; F41.8 Other specified anxiety disorders; Z90.49 Acquired absence of other specified parts of digestive tract; Z98.0 Intestinal bypass and anastomosis status; Z88.8 Allergy status to other drugs, medicaments and biological substances
CPT/HCPCS: 99153; G0500; J2250; J3010; J7120

== ENCOUNTER 2018-01-22 05:40 | Day surgery (SDC) | payer OTHER ==
[~2018-01-22] VITALS: Ht 182.9 cm; Wt 100.0 kg
[2018-01-22] MEDS ORDERED: IBUPROFEN600 MG PO (09:14)
[2018-01-22] MEDS ORDERED: HYDROCODON-ACE1 EA10 PO (09:14)
[2018-01-22] MEDS ORDERED: MAPAP325 MG PO (09:15)
[2018-01-22] MEDS ORDERED: FLAGYL250 MG PO (09:16)
--- NOTE | 2018-01-22 12:40 | OR ---
[facility] [address] [place], [place] [address] Signed DATE OF OPERATION: 01/22/2018 SURGEON: Robbin Pimentel MD PREOPERATIVE DIAGNOSES: 1. History of Crohn's disease and ileocolectomy with complication of anastomotic failure, requiring reanastomosis. 2. Small incisional hernia at umbilicus. POSTOPERATIVE DIAGNOSES: 1. History of Crohn's disease and ileocolectomy with complication of anastomotic failure, requiring reanastomosis. 2. Small incisional hernia at umbilicus. 3. Mild swelling left anterolateral anorectal area, site of previous fistula in ano. PROCEDURE: 1. Exam under anesthesia. 2. Repair of incisional hernia. 3. Implantation of Prolene mesh (underlay properitoneal technique). ANESTHESIA: General LMA, Robbin Delarosa CRNA and local 20 mL of 0.25% Marcaine with epinephrine. INDICATION: This 27-year-old white man is a prisoner at [facility] and a patient of Dr. Ferrara. He is well known to me from the past. He has longstanding Crohn's disease and has anaphylactic reaction to Remicade and Humira. He has had manifestations of recurrent perianal fistula and in the past had advanced Crohn disease at the ileocecal valve, for which he underwent ileocecal colectomy by me. He did develop an abscess in that region, and was found to have an enteric leak requiring reexploration, resection, and reanastomosis. He has more recently undergone colonoscopy and intubation of the ileum showing minimal active disease at the area. He does take mesalamine currently. He has refused other medications including Entyvio. He has developed a small hernia at the umbilicus, which is symptomatic for him. He is admitted at this time to undergo repair of the hernia. He understands the risks of bleeding, infection, recurrence, and other unforeseen complications. Electronically Signed By: ROBBIN PIMENTEL MD 01/22/18 1240 PATIENT NAME: ADRIENNE CANALES OPERATIVE REPORT DATE OF : [birth year] REPORT #: [id number] PHYSICIAN: ROBBIN PIMENTEL MD PCP: GRADY FERRARA MD REPORT IS CONFIDENTIAL AND NOT TO BE RELEASED WITHOUT AUTHORIZATION [facility] [address] [place] [id number] Signed The patient has had episodic perianal drainage in the left anterolateral aspect and does describe some swelling without drainage now. He is not particularly painful. Exam under anesthesia is agreed upon as well. FINDINGS: The area in question, the perianal area showed a small swelling without sign of erythema and no sign of active drainage. This may well be the site of previous fistula in ano. As regard to the hernia, it was a small defect about 2 cm in size into the left of the midline. It was not immediately apparent and thus the fascia at the umbilicus was divided, ultimately identifying it more fully. Repair involved implantation of Prolene mesh in the properitoneal space with care taken to be sure of good continuity of the peritoneum and underlying omentum as a biologic barrier to the mesh. The defect itself was covered in the midline fascia and the defect itself was reapproximated. Prolene pledgets were used to stabilize the implantation. DESCRIPTION OF PROCEDURE: The patient was brought to the operating room, given a general LMA-type anesthetic. Preoperative antibiotic Ancef was given and sequential compression device stockings used. Heparin was subcutaneously administered as well. The legs were frog-legged and brief examination undertaken showing mild swelling in the area of previous fistula in ano, but no sign of active drainage or erythema. No other findings were noted. The abdomen was then clipped and prepared with a chlorhexidine solution and draped sterilely. A small incision was made around the umbilicus on the previous incision. Dissection carried through the subcutaneous tissue with blunt and electrocautery dissection. Dissection was carried down to the fascia itself, which appeared largely intact. The fascia was incised to allow for examination of properitoneal space. Upon doing this, the properitoneal space was bluntly and the fascial defect was noted just lateral to the midline fascia about 2 cm in size. Circumferential separation of the properitoneal space was undertaken. The midline fascial defect from the incision was made to be in continuity with the hernia defect. A rent in the peritoneum was secured with running 2-0 Vicryl so as to be sure there was no contact between the intraabdominal viscera and the mesh that was intended for repair. The small segment of Prolene mesh was cut to an elliptical configuration and secured in appropriate medial left position using interrupted 0 Prolene sutures with Prolene pledgets. Midline fascia and the defect of the hernia itself were reapproximated as well using Prolene with Prolene pledgets in a vertical mattress configuration. Irrigation was undertaken and 20 mL of 0.25% Marcaine with epinephrine was injected locally. Nick's layer was reapproximated with interrupted 2-0 Vicryl and skin closed Electronically Signed By: ROBBIN PIMENTEL MD 01/22/18 1240 PATIENT NAME: ADRIENNE CANALES OPERATIVE REPORT DATE OF : [birth year] REPORT #: [id number] PHYSICIAN: ROBBIN PIMENTEL MD PCP: GRADY FERRARA MD REPORT IS CONFIDENTIAL AND NOT TO BE RELEASED WITHOUT AUTHORIZATION [facility] [address] [place] [address] Signed with running subcuticular 3-0 Vicryl. Steri-Strips were applied as was a Mepilex silver sponge dressing and OpSite. The patient was ultimately extubated and transferred to recovery room in good condition having suffered no complications. Sponge, needle, and instrument counts reported as correct x3. MD ROMERO Cooper/VENESSAL /[id number] cc: Grady Ferrara MD Copies: GRADY FERRARA MD ~ Electronically Signed By: ROBBIN PIMENTEL MD 01/22/18 1240 PATIENT NAME: ADRIENNE CANALES OPERATIVE REPORT DATE OF : [birth year] REPORT #: [id number] PHYSICIAN: ROBBIN PIMENTEL MD PCP: GRADY FERRARA MD REPORT IS CONFIDENTIAL AND NOT TO BE RELEASED WITHOUT AUTHORIZATION
== END 2018-01-22 10:50 | disposition home or self-care (01) ==
LOC: DS 05:40
PROVIDERS: Surgery
PROC: 0WUF0JZ Supplement Abdominal Wall with Synthetic Substitute, Open Approach (ICD-10-PCS; principal; 2018-01-22 06:45)
DX: K43.2 Incisional hernia without obstruction or gangrene (principal); K50.00 Crohn's disease of small intestine without complications; I10 Essential (primary) hypertension; K60.5 Anorectal fistula; Z79.899 Other long term (current) drug therapy; Z98.890 Other specified postprocedural states
CPT/HCPCS: 00830; C1781; J0330; J0690; J1100; J1644; J1720; J1885; J2250; J2405; J2704; J2765; J3010; J7120